=== PATIENT | female | born 1940 | race Caucasian/White ===

== ENCOUNTER 2024-12-07 11:37 | Inpatient (IN) ==
--- OUTSIDE RECORDS SUMMARY | 2024-12-07 11:44 | External Medical Summary | Summary of Care ---
Author Name Unknown Organization [facility] Address [address] [place] [address] Phone [phone] Care Team Providers Care Bus And Sys Integration Senior Manager Name Role Phone Melecio Nye MD Primary Care Provider [phone] Reason for Visit * Reason Onset Date Comments Referral 11/04/2024 Fax Home Health Referral to [facility] Encounter Details Date Type Department Care Team (Late st Contact Info) Description 11/04/2024 Telephone Care Coordination and Integration [address] [place] [address] Radha Boyce, RADHA [address] [place] [address] Referral (Fax Home Health Referral to [facility]... Allergies Active Allergy Reactions Criticality Noted Date Comments Nitrofurantoin 11/30/2015 Nausea and diarrhea, upset her stomach Morphine 05/12/2011 Severe headache Other reaction(s): severe headache documented as of this encounter (statuses as of 11/21/2024) Medications TIMOPTIC OCUDOSE 0.25 % OP SOLN Instill into eye 2 times a day. 0 0 02/02/2009 Active Cholecalciferol (VITAMIN D) 2000 units Tablet Take 2,000 Units by mouth daily. Active Dorzolamide HCl-Timolol Mal 2-0.5 % Ophthalmic Solution (Cosopt Ocumeter Plus) Instill 1 Drop into both eyes in the morning and 1 Drop before bedtime. 09/21/2023 Active Clopidogrel Bisulfate 75 MG Oral Tablet (pLAVix)Indicati ons:Cerebrovascu lar disease, arteriosclerotic , post-stroke TAKE 1 TABLET BY MOUTH EVERY MORNING 90 Tablet 1 08/08/2024 Active B-12 1000 MCG Oral TabletIndication s:Low vitamin B12 level One tab every M-W-F. 08/29/2024 Active Metoprolol Succinate ER 25 MG Oral Tablet Extended Release 24 Hour (toPROL XL)Indications:H [place], age 0-18 TAKE ONE TABLET BY MOUTH IN THE MORNING 90 Tablet 3 09/20/2024 Active Escitalopram Oxalate 10 MG Oral Tablet (Lexapro)Indicat ions:Current mild episode of major depressive disorder, unspecified whether recurrent (HCC) TAKE 1/2 TABLET BY MOUTH ONCE DAILY for 1 week then take 1 tablet once daily 90 Tablet 3 09/20/2024 Active Cefdinir 300 MG Oral Capsule (Omnicef) Take 1 Capsule by mouth in the morning and 1 Capsule before bedtime. 10/31/2024 Active Omeprazole 40 MG Oral Capsule Delayed Release (PriLOSEC)Indica tions:Gastroesop hageal reflux disease with esophagitis without hemorrhage Take 1 Capsule by mouth in the morning. 1 hour before the first meal of the day. 90 Capsule 3 11/03/2024 Active documented as of this encounter (statuses as of 11/21/2024) Active Problems Problem Noted Date Diagnosed Date Encephalomalacia with cerebral infarction 2024 Major depressive disorder, single episode, mild 04/20/2023 Dizziness 12/13/2022 Senile osteoporosis 12/13/2022 Dysphagia 12/13/2022 Tympanic membrane perforation, bilateral 019 Rectocele 12/20/2018 Prolapse of vaginal vault after hysterectomy 10/2018 Cystocele, lateral 12/20/2018 History of recurrent UTI (urinary tract infectio n) 05/18/2017 JD (stress urinary incontinence, female) 2016 Continuous leakage of urine 05/18/2017 Nocturnal enuresis 05/18/2017 Generalized osteoarthritis 08/22/2016 Dyslipidemia, goal LDL below 100 09/29/2013 Cerebrovascular disease, arteriosclerotic, post- stroke 07/08/2012 Cystocele, midline 01/03/2007 Migraine with aura 11/23/2003 documented as of this encounter (statuses as of 11/21/2024) Resolved Problems Problem Noted Date Diagnosed Date Resolved Date ADVANCE DIRECTIVE INFORMATION 12/26/2019 08/25/2024 Overview (12/05/2005): No advance directive- info given Urinary incontinence without sensory awareness 05/18/2017 02/25/2018 Urge incontinence of urine 05/18/2017 0 07/13/2021 Cough 12/10/2012 02/25/2018 Pneumonia due to organism 12/09/2012 Overview (07/25/2016): ICD-10 update of inactive term Cerebrovascular disease, art eriosclerotic, post-stroke 02/02/2009 07/08/2012 Overview (02/04/2009): Modified per CVA protocol #8 Urinary tract infection 01/28/200804/2018 Urinary frequency 01/28/2008 02/25/2018 Dysuria 01/28/2008 02/25/2018 Chronic pharyngitis 05/10/2007 02/26/20 18 Dyslipidemia, goal to be determined 01/22/2007 09/29/2013 CVA 11/10/2002 02/04/2009 Overview (02/04/2009): Modified per CVA protocol #8 documented as of this encounter (statuses as of 11/21/2024) Immunizations Name Administration Dates Next Due COVID-19 mRNA, LNP-s, No Pre serve, 2-Dose Series ([employer]) 11/03/2021,02/03/2021,01/13/2021 Pneumococcal Conjugate Vacci ne, 20-valent ([id number]) 10/26/2023 Pneumococcal Polysaccharide PPV23 (Pneumovax) 08/22/2007 Season Influenza, Quad, PF, Adjuvanted, 65+ Yrs, IM (FLUAD) 08/25/2020 Seasonal Influenza Vac., MDV , IM, 0.5 mL (Fluzone) 07/31/2014,07/30/2013,07/27/2012,10/0 02/2011,07/06/2010,07/15/2009,12/04/19 09(Deferred: Patient Refused) Seasonal Influenza, High Dos e, Trivalent, PF, IM (Fluzone HD) 08/25/2024 Seasonal Influenza, PF, 6 M & above, IM , (FluLaval or Fluzone) 08/22/2019,08/21/2018,08/20/2017 08/20/2018 Seasonal Influenza, Quadriva lent Hd (Fluzone Hd) 09/06/2023 Seasonal Influenza, Quadriva lent, No Preserve, IM 08/17/2016,08/05/2015 08/17/2017 Seasonal Influenza, Trivalen t, Adjuvanted, 65+ YRS, PF, (Fluad) 09/21/2022 TD, Preservative Free 12/21/2011 TDAP (age 10 and older)(Boostrix) 10/22/2017 Varicella Zoster Vaccine (Adult) 07/22/2013 documented as of this encounter Social History Tobacco Use Types Packs/Day Years Used Date Smoking Tobacco: Never Passive Smoke Exposure: Never Smokeless Tobacco: Never Alcohol Use Standard Drinks/Week Comments Not Currently 0 (1 standard drink = 0.6 oz pur e alcohol) PHQ-2 Answer Date Recorded PHQ Adult Total Score 0 11/04/2024 Hunger Vital Sign Answer Date Recorded Within the past 12 months, y ou worried that your food would run out before you got the money to buy more. Never true 11/04/19 25 Within the past 12 months, t he food you bought just didn't last and you didn't have money to get more. Never true 11/04/2024 Childcare Answer Date Recorded Do you feel overwhelmed with taking care of a child, family member or friend? No 11/04/2024 Does your family need help f inding childcare? (Household - for ages 0-17 years) Not on file 11/04/2024 Clothing Answer Date Recorded Have you been unable to get clothing when it was really needed? No 11/04/2024 Is your family able to get c lothes or diapers when needed? (Household - for ages 0-17 years) Not on file 11/04/2024 Personal Safety Answer Date Recorded Do you feel unsafe or have concerns for your saf ety? No 11/04/2024 Do you have concerns for you r family's safety? (Household - for ages 0-17 years) Not on file 11/04/2024 Utilities Answer Date Recorded Do you have trouble paying y our heating, water, or electric bill? No 11/04/2024 Is your family able to pay t he heat, water, or electric bill? (Household - for ages 0-17 years) Not on file 11/04/2024 Does your family have access to good internet? (Household - for ages 0-17 years) Not on file 11/04/2024 Employment Status Answer Date Recorded Are you unemployed or without regular income? No 11/04/2024 Does the household have a re lar source of income? (Household - for ages 0-17 years) Not on file 11/04/2024 Social Connections Answer Date Recorded How often do you feel lonely or isolated from th ose around you? Never 11/04/2024 Financial Resource Strain Answer Date R ecorded Do you have any trouble payi ng for your medications, or do you think you might in the future? No 11/04/2024 Does your family have troubl e paying for medicine? (Household - for ages 0-17 years) Not on file 11/04/2024 Transportation Needs Answer Date Record ed Do you have trouble getting a ride to medical visits or work? (Adult - for ages 18 years and over) Not on file 11/04/2024 Does your family have a hard time getting a ride to doctors visits? (Household - for ages 0-17 years) Not on file 11/04/2024 Has lack of transportation k ept you from medical appointments, meetings, work, or from getting things needed for daily living? Check all that apply. No 11/04/2024 Do you (or your family) have trouble finding or paying for a ride (transportation)? (Household - for ages 0-17 years) Not on file 11/04/2024 Housing Stability Answer Date Recorded Do you currently live in a s helter or have no steady place to sleep at night? No 11/04/2024 Do you think you are at risk of becoming homeless? (Adult - for ages 18 years and over) Not on file 11/04/2024 Does your family worry about paying for your home or becoming homeless? (Household - for ages 0-17 years) Not on file 0 11/04/2024 Are you homeless or worried that you might be in the future? No 11/04/2024 Are you (or your family) patricia eless or worried that you might be in the future? (Household - for ages 0-17 years) Not on file Food Insecurity Answer Date Recorded Do you need food for this week? No 11/04/2024 Are you able to get enough f ood for your family? (Household - for ages 0-17 years) Not on file 11/04/2024 Does your family need food t his week? (Household - for ages 0-17 years) Not on file 11/04/2024 Do you always have enough fo od for your family? 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 * Telephone Encounter - Radha Boyce RN - 11/20/2024 2:37 PM EST Upon speaking to patient's daughter Eleni today, she notes she has not yet been contacted by [facility]. A follow up call was made to [facility] and they never received the home health referral for patient. An alternate fax number for [facility] was provided (fax: [phone]). Front office staff, please fax patient's home health referral from 11/03/2024 to [phone]. Please also ensure Eleni's contact number is listed on the referral as she is the main point of contact for patient. Thanks, Radha Boyce RN, BSN Float Controls Operator [employer] [phone] * Telephone Encounter - Yasmine Denise OSA - 11/06/2024 4:25 PM EST This was taken care of by Torsten Velez today. 11/06/2024 * Telephone Encounter - Radha Boyce RN - 11/04/2024 2:38 PM EST A Home Health referral was placed during yesterday's clinic visit. Front office staff, please fax the home health referral to [facility]. Please also ensure patient's daughter's phone number is on the referral as she is the one who should be contacted to arrange home health visits. Thanks, Radha Boyce RN, BSN Float Controls Operator [employer]s [phone] documented in this encounter Plan of Treatment Upcoming Encounters Date Type Department Care Team (Late st Contact Info) Description 12/10/2024 11:30 AM EST Office Visit Otolaryngology [facility] [address] [address] Ilene Ruiz PA-C [address] [address] 12/16/2024 11:00 AM EST Imaging Radiology [facility] [address] [phone] 03/03/2025 1:00 PM EDT Office Visit [facility] Mary Rdz [address] [phone] Melecio Nye MD [address] [address] Scheduled Procedures Name Priority Associated Diagnoses Date/Ti me COLONOSCOPY FLEXIBLE PROXIMA L DIAGNOSTIC Recall History of colonic polyps Health Maintenance Due Date Last Done Comments Zoster Vaccines (2 of 3) 05/05/2014 03/10/2014, 10/2012 Adult Wellness Visit 06/21/2021 06/21/2020 COVID-19 Vaccine ( season) 2024 11/03/2021, 02/03/2021, 01/13/2021 Colonoscopy 07/01/2024 07/01/2019, 06/22, 07/01/2015, Additional history exists DXA Scan 11/22/2024 11/22/2022, 10/2022, 03/11/2015 Depression Monitoring 11/04/2025 11/04/2024, 024 DTap/Tdap Vaccines (2 - Td or Tdap) 10/22/2027 10/22/2017, 12/21/2011 RETIRED - COLONOSCOPY-EVERY 5 YRS AGES 18-100 Discontinued 07/01/2019, 07/01/2019, 07/01/2015, Additional history exists Pneumococcal Vaccine: 50+ Years Completed 10/26/2023, 08/22/2007 VITAMIN D LEVEL ONCE IN A LIFETIME-USE SMARTSET# [id number] Completed 12/13/2023, 12/13/2022, 08/27/2014, Additional history exists Influenza Vaccine (FLU shot) Completed 08/25/2024, 09/06/2023, 10/08/2022, Additional history exists HPV (Gardasil) Vaccine Aged Out No lo nger eligible based on patient's age to complete this topic Hepatitis B Vaccine Aged Out No longe r eligible based on patient's age to complete this topic MENINGOCOCCAL (MENACTRA/MENVEO) Aged Out No longer eligible based on patient's age to complete this topic documented as of this encounter Medical Devices Not on filedocumented as of this encounter Advance Directives Documents on File Type Date Recorded 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
--- OUTSIDE RECORDS SUMMARY | 2024-12-07 11:44 | External Medical Summary | Summary of Care ---
Author Name Unknown Organization [facility] Address [address] [place] [address] Phone [phone] Care Team Providers Care Shank Faker Name Role Phone Melecio Nye MD Primary Care Provider [phone] Reason for Visit * Reason Onset Date Comments Referral 11/04/2024 Fax Home Health Referral to [facility] Home Health Encounter Details Date Type Department Care Team (Late st Contact Info) Description 11/04/2024 Telephone Care Coordination and Integration [address] [place] [address] Radha Boyce, RADHA [address] [place] [address] Referral (Fax Home Health Referral to [facility]... Allergies Active Allergy Reactions Criticality Noted Date [...] mRNA, LNP-s, No Pre serve, 2-Dose Series ([employer]) 11/03/2021,02/03/2021,01/13/2021 Pneumococcal Conjugate Vacci ne, 20-valent ([id number]) 10/26/2023 Pneumococcal Polysaccharide PPV23 (Pneumovax) 08/22/2007 Season [...] she has not yet been contacted by [facility]. A follow up call was made to [facility] and they never received the home health referral for patient. An alternate fax number for [facility] was provided (fax: [phone]). Front office staff, please fax patient's home health referral from 11/03/2024 to [phone]. Please also ensure Eleni's contact number is listed on the referral as she is the main point of contact for patient. Thanks, Radha Boyce RN, BSN Float Showroom Consultant [phone] * Telephone Encounter - Yasmine Denise OSA - 11/06/2024 4:25 PM EST This was taken care of by Torsten Velez today. 11/06/2024 * Telephone Encounter - Radha Boyce RN - 11/04/2024 2:38 PM EST A Home Health referral was placed during yesterday's clinic visit. Front office staff, please fax the home health referral to [facility]. Please also ensure patient's daughter's phone number is on the referral as she is the one who should be contacted to arrange home health visits. Thanks, Radha Boyce RN, BSN Float Showroom Consultant [phone] documented in this encounter Plan of Treatment Upcoming Encounters Date Type Department Care Team (Late st Contact Info) Description 12/10/2024 11:30 AM EST Office Visit Otolaryngology [facility] [address] [address] Ilene Ruiz PA-C [address] [address] 12/16/2024 11:00 AM EST Imaging Radiology [facility] [address] [phone] 03/03/2025 1:00 PM EDT Office Visit [facility] Mary Rdz [address] [phone] Melecio Nye MD [address] [address] Scheduled Procedures Name Priority Associated Diagnoses Date/Ti [...] D LEVEL ONCE IN A LIFETIME-USE SMARTSET# [id number] Completed 12/13/2023, 12/13/2022, 08/27/2014, Additional history exists [...] Documents on File Type Date Recorded 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
--- OUTSIDE RECORDS SUMMARY | 2024-12-07 11:44 | External Medical Summary | Summary of Care ---
Author Name Unknown Organization [facility] Address [address] [place] [address] Phone [phone] Care Team Providers Care Technology And Engineering Teacher Name Role Phone eMlecio Nye MD Primary Care Provider [phone] Reason for Visit * Reason Onset Date Comments Referral 11/04/2024 Fax Home Health Referral to [facility] Encounter Details Date Type Department Care Team (Late st Contact Info) Description 11/04/2024 Telephone Care Coordination and Integration [address] [place] [address] Radha Boyce, RADHA [address] [place] [address] Referral (Fax Home Health Referral to [facility]... Allergies Active Allergy Reactions Criticality Noted Date Comments Nitrofurantoin 11/30/2015 Nausea and diarrhea, upset her stomach Morphine 05/12/2011 Severe headache Other reaction(s): severe headache documented as of this encounter (statuses as of 11/20/2024) Medications TIMOPTIC OCUDOSE 0.25 % OP SOLN [...] as of this encounter (statuses as of 11/20/2024) Active Problems Problem Noted Date Diagnosed Date [...] as of this encounter (statuses as of 11/20/2024) Resolved Problems Problem Noted Date Diagnosed Date [...] as of this encounter (statuses as of 11/20/2024) Immunizations Name Administration Dates Next Due COVID-19 mRNA, LNP-s, No Pre serve, 2-Dose Series ([employer] 11/03/2021,02/03/2021,01/13/2021 Pneumococcal Conjugate Vacci ne, 20-valent ([id number]) 10/26/2023 Pneumococcal Polysaccharide PPV23 (Pneumovax) 08/22/2007 Season [...] encounter Miscellaneous Notes * Telephone Encounter - Radha Boyce RN - 11/20/2024 2:37 PM EST Upon speaking to patient's daughter Eleni today, she notes she has not yet been contacted by [facility]. A follow up call was made to [facility] and they never received the home health referral for patient. An alternate fax number for [facility] was provided (fax: [phone]). Front office staff, please fax patient's home health referral from 11/03/2024 to [phone]. Please also ensure Eleni's contact number is listed on the referral as she is the main point of contact for patient. Thanks, Radha Boyce RN, BSN Float Pigment Pusher [phone] * Telephone Encounter - Yasmine Denise OSA - 11/06/2024 4:25 PM EST This was taken care of by Torsten Velez today. 11/06/2024 * Telephone Encounter - Radha Boyce RN - 11/04/2024 2:38 PM EST A Home Health referral was placed during yesterday's clinic visit. Front office staff, please fax the home health referral to [facility]. Please also ensure patient's daughter's phone number is on the referral as she is the one who should be contacted to arrange home health visits. Thanks, Radha Boyce RN, BSN Float Pigment Pusher [phone] documented in this encounter Plan of Treatment Upcoming Encounters Date Type Department Care Team (Late st Contact Info) Description 12/10/2024 11:30 AM EST Office Visit Otolaryngology [facility] [address] [address] Ilene Ruiz PA-C [address] [address] 12/16/2024 11:00 AM EST Imaging Radiology [facility] [address] [phone] 03/03/2025 1:00 PM EDT [facility] [address] [phone] Melecio Nye MD [address] [address] Scheduled Procedures Name Priority Associated Diagnoses Date/Ti me COLONOSCOPY FLEXIBLE PROXIMA L DIAGNOSTIC Recall History of colonic polyps Health Maintenance Due Date Last Done Comments Zoster Vaccines (2 of 3) 05/05/2014 03/10/2014, 1010/2012 Adult Wellness Visit 06/21/2021 06/21/2020 COVID-19 Vaccine [...] D LEVEL ONCE IN A LIFETIME-USE SMARTSET# [id number] Completed 12/13/2023, 12/13/2022, 08/27/2014, Additional history exists [...] Documents on File Type Date Recorded 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
--- OUTSIDE RECORDS SUMMARY | 2024-12-07 11:44 | External Medical Summary | Summary of Care ---
Author Name Unknown Organization [facility] Address [address] [place] [address] Phone [phone] Care Team Providers Care Bench Hand Machine Name Role Phone Melecio Nye MD Primary Care Provider [phone] Encounter Details Date Type Department Care Team (Late st Contact Info) Description 11/20/2024 Telephone [facility] [address] [place] [phone] Deepti Garcia MD [address] [facility] [address] [place] [phone] Allergies Active Allergy Reactions Criticality Noted Date Comments Nitrofurantoin 11/30/2015 Nausea and diarrhea, upset her stomach Morphine 05/12/2011 Severe headache Other reaction(s): severe headache documented as of this encounter (statuses as of 11/27/2024) Medications TIMOPTIC OCUDOSE 0.25 % OP SOLN [...] as of this encounter (statuses as of 11/27/2024) Active Problems Problem Noted Date Diagnosed Date [...] as of this encounter (statuses as of 11/27/2024) Resolved Problems Problem Noted Date Diagnosed Date [...] as of this encounter (statuses as of 11/27/2024) Immunizations Name Administration Dates Next Due COVID-19 mRNA, LNP-s, No Pre serve, 2-Dose Series ([employer]) 11/03/2021,02/03/2021,01/13/2021 Pneumococcal Conjugate Vacci ne, 20-valent ([id number]) 10/26/2023 Pneumococcal Polysaccharide PPV23 (Pneumovax) 08/22/2007 Season Influenza, Quad, PF, Adjuvanted, 65+ Yrs, IM (FLUAD) 08/25/2020 Seasonal Influenza Vac., MDV , IM, 0.5 mL (Fluzone) 07/31/2014,07/30/2013,07/27/2012,02/2011,07/06/2010,07/15/2009,12/04/19 09(Deferred: Patient Refused) Seasonal Influenza, High Dos [...] 11/04/2024 Does the household have a re gular source of income? (Household - for ages [...] ages 0-17 years) Not on file 11/04/2024 Food Insecurity Answer Date Recorded Within the past 12 months, y ou worried that your food would run out before you got the money to buy more. Never true 11/04/19 25 Within the past 12 months, t he food you bought just didn't last and you didn't have money to get more. Never true 11/04/2024 Do you need food for this week? No 11/04/2024 Comments No Sex and Gender Information [...] encounter Miscellaneous Notes * Telephone Encounter - Yin Alvares LPN - 11/20/2024 2:36 PM EST Left message on machine to return call. Please see message below. * Telephone Encounter - Deepti Garcia MD - 11/20/2024 9:05 AM EST Repeated urine test was negative for infection documented in this encounter Plan of Treatment Upcoming Encounters Date Type Department Care Team (Late st Contact Info) Description 12/10/2024 11:30 AM EST Office Visit Otolaryngology [facility] [address] [facility] [address] [address] Ilene Ruiz PA-C [address] [place] [address] 12/16/2024 11:00 AM EST Imaging Radiology [facility] [address] [place] [phone] 03/03/2025 1:00 PM EDT Office Visit [facility] [address] [facility] [phone] Melecio Nye MD [address] [facility] [place] [address] Scheduled Procedures Name Priority Associated Diagnoses Date/Ti [...] D LEVEL ONCE IN A LIFETIME-USE SMARTSET# [id number] Completed 12/13/2023, 12/13/2022, 08/27/2014, Additional history exists [...] Documents on File Type Date Recorded 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
--- OUTSIDE RECORDS SUMMARY | 2024-12-07 11:44 | External Medical Summary | Summary of Care ---
Author Name Unknown Organization [facility] Address [address] [place] [address] Phone [phone] Care Team Providers Care Infectious Disease Technician Name Role Phone Melecio Nye MD Primary Care Provider [phone] Encounter Details Date Type Department Care Team (Late st Contact Info) Description 11/20/2024 Telephone [facility] [address] [place] [address] Deepti Garcia MD [address] [facility] [place] [id number] Allergies Active Allergy Reactions Criticality Noted Date [...] mRNA, LNP-s, No Pre serve, 2-Dose Series ([employer]) 11/03/2021,02/03/2021,01/13/2021 Pneumococcal Conjugate Vacci ne, 20-valent ([id number]) 10/26/2023 Pneumococcal Polysaccharide PPV23 (Pneumovax) 08/22/2007 Season [...] 12/10/2024 11:30 AM EST Office Visit Otolaryngology [facility] [address] [address] Ilene Ruiz PA-C [address] [address] 12/16/2024 11:00 AM EST Imaging Radiology [facility] [address] [phone] 03/03/2025 1:00 PM EDT Office Visit [facility], [place] [address] [phone] Melecio Nye MD [address] [address] Scheduled Procedures Name Priority Associated Diagnoses Date/Ti [...] D LEVEL ONCE IN A LIFETIME-USE SMARTSET# [id number] Completed 12/13/2023, 12/13/2022, 08/27/2014, Additional history exists [...] Documents on File Type Date Recorded Patient Prosthetics Technician Expl anation Advance Directives and Living Will 04/16/2017 LIVING WILL Care Teams Infectious Disease Technician Relationship Specialty Start Date End Date Melecio Nye MD PCP - General Family Medicine 12/11/22 documented as of this encounter
--- OUTSIDE RECORDS SUMMARY | 2024-12-07 11:44 | External Medical Summary ---
Author Name UNSPECIFIED Address Unknown Organization [facility] History of Encounters Reason for Assessment: Start of care - f urther visits planned Inpatient discharge facility: Past 14 Da ys: Not Discharged from Inpatient Facility Functional Assessment Patient Living Situation: Patient Lives Alone: Around the clock When Dyspneic: With moderate exerti on (e.g., while dressing, using commode or bedpan, walking distances less than 20 feet) Urinary Incontinence or Urin genia Catheter Present: Patient is incontinent Bowel Incontinence Frequency: One to thr ee times weekly Cognitive Functioning: Requires promptin g (cueing, repetition, reminders) only under stressful or unfamiliar conditions. When Confused (Reported or Observed): In new or complex situations only When Anxious (Reported or Observed): Les s often than daily Cognitive and Behavioral and Psychiatric Symptoms: Memory deficit: failure to recognize familiar persons/places, inability to recall events of past 24 hours, significant memory loss so that supervision is required Frequency of Behavior Problems: Several times a week Current Ability: Bathing: able to partic ipate in bathing self in shower or tub, but requires presence of another person throughout the bath for assistance or supervision. Current Ability: Ambulation: Able to wal k only with the supervision or assistance of another person at all times. 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
--- OUTSIDE RECORDS SUMMARY | 2024-12-07 11:44 | External Medical Summary | Summary of Care ---
Author Name Unknown Organization [facility] Address [address] [place] [address] Phone [phone] Care Team Providers Care Security Systems Technician Name Role Phone Melecio Nye MD Primary Care Provider [phone] Reason for Visit * Reason Onset Date Comments Referral 11/04/2024 Fax Home Health Referral to [facility] Encounter Details Date Type Department Care Team (Late st Contact Info) Description 11/04/2024 Telephone Care Coordination and Integration [address] [place] [address] Radha Boyce, RADHA [address] [place] [address] Referral (Fax Home Health Referral to [facility]... Allergies Active Allergy Reactions Criticality Noted Date [...] mRNA, LNP-s, No Pre serve, 2-Dose Series ([employer] 11/03/2021,02/03/2021,01/13/2021 Pneumococcal Conjugate Vacci ne, 20-valent ([id number]) 10/26/2023 Pneumococcal Polysaccharide PPV23 (Pneumovax) 08/22/2007 Season [...] she has not yet been contacted by [facility]. A follow up call was made to [facility] and they never received the home health referral for patient. An alternate fax number for [facility] was provided (fax: [phone]). Front office staff, please fax patient's home health referral from 11/03/2024 to [phone]. Please also ensure Eleni's contact number is listed on the referral as she is the main point of contact for patient. Thanks, Radha Boyce RN, BSN [employer] Operations Specialist [phone] * Telephone Encounter - Yasmine Denise OSA - 11/06/2024 4:25 PM EST This was taken care of by Torsten Velez today. 11/06/2024 * Telephone Encounter - Radha Boyce RN - 11/04/2024 2:38 PM EST A Home Health referral was placed during yesterday's clinic visit. Front office staff, please fax the home health referral to [facility]. Please also ensure patient's daughter's phone number is on the referral as she is the one who should be contacted to arrange home health visits. Thanks, Radha Boyce RN, BSN [employer] Operations Specialist [phone] documented in this encounter Plan of Treatment Upcoming Encounters Date Type Department Care Team (Late st Contact Info) Description 12/10/2024 11:30 AM EST Office Visit Otolaryngology [facility] [address] [address] Ilene Ruiz PA-C [address] [address] 12/16/2024 11:00 AM EST Imaging Radiology [facility] [address] [phone] 03/03/2025 1:00 PM EDT [facility] [address] [phone] Melecio Nye MD [address] [address] Scheduled Procedures Name Priority Associated Diagnoses Date/Ti [...] D LEVEL ONCE IN A LIFETIME-USE SMARTSET# [id number] Completed 12/13/2023, 12/13/2022, 08/27/2014, Additional history exists [...] Documents on File Type Date Recorded Patient Axminster Weaver Expl anation Advance Directives and Living Will 04/16/2017 LIVING WILL Care Teams Security Systems Technician Relationship Specialty Start Date End Date Melecio Nye MD PCP - General Family Medicine 12/11/22 documented as of this encounter
--- OUTSIDE RECORDS SUMMARY | 2024-12-07 11:45 | External Medical Summary | Summary of Care ---
Author Name Unknown Organization [facility] Address [address] [facility] [address] Phone [phone] Care Team Providers Care Application Integration Engineer Name Role Phone Melecio Nye MD Primary Care Provider [phone] Encounter Details Date Type Department Care Team (Late st Contact Info) Description 11/06/2024 Orders Only PATIENT PORTAL DO NOT DELETE THIS DEPT USED BY GEENA SELF [id number] Allergies Active Allergy Reactions Criticality Noted Date Comments Nitrofurantoin 11/30/2015 Nausea and diarrhea, upset her stomach Morphine 05/12/2011 Severe headache Other reaction(s): severe headache documented as of this encounter (statuses as of 11/06/2024) Medications TIMOPTIC OCUDOSE 0.25 % OP SOLN [...] s:Low vitamin B12 level One tab every -W-. 08/29/2024 Active Metoprolol Succinate ER 25 MG [...] as of this encounter (statuses as of 11/06/2024) Active Problems Problem Noted Date Diagnosed Date [...] as of this encounter (statuses as of 11/06/2024) Resolved Problems Problem Noted Date Diagnosed Date [...] as of this encounter (statuses as of 11/06/2024) Immunizations Name Administration Dates Next Due COVID-19 mRNA, LNP-s, No Pre serve, 2-Dose Series ([employer]) 11/03/2021,02/03/2021,01/13/2021 Pneumococcal Conjugate Vacci ne, 20-valent ([id number]) 10/26/2023 Pneumococcal Polysaccharide PPV23 (Pneumovax) 08/22/2007 Season [...] on file documented as of this encounter Plan of Treatment Upcoming Encounters Date Type Department Care Team (Late st Contact Info) Description 12/10/2024 11:30 AM EST Office Visit Otolaryngology [facility] [address] [address] Ilene Ruiz PA-C [address] [address] 12/16/2024 11:00 AM EST Imaging Radiology [facility] [address] [phone] 03/03/2025 1:00 PM EDT Office Visit [facility] Karen Robreto [address] [phone] Melecio Nye MD [address] [address] Scheduled Procedures Name Priority Associated Diagnoses Date/Ti [...] D LEVEL ONCE IN A LIFETIME-USE SMARTSET# [id number] Completed 12/13/2023, 12/13/2022, 08/27/2014, Additional history exists [...] Documents on File Type Date Recorded Patient Felt Tipping Machine Tender Expl anation Advance Directives and Living Will 04/16/2017 LIVING WILL Care Teams Application Integration Engineer Relationship Specialty Start Date End Date Melecio Nye MD PCP - General Family Medicine 12/11/22 documented as of this encounter
--- OUTSIDE RECORDS SUMMARY | 2024-12-07 11:45 | External Medical Summary | Summary of Care ---
Author Name Unknown Organization [facility] Address [address] [place] [address] Phone [phone] Care Team Providers Care Welt Beater Name Role Phone Melecio Nye MD Primary Care Provider [phone] Encounter Details Date Type Department Care Team (Late st Contact Info) Description 11/20/[address] [facility] [address] [place] [address] Deepti Garcia MD [address] [facility] [address] [place] [phone] Allergies Active Allergy Reactions Criticality Noted Date [...] mRNA, LNP-s, No Pre serve, 2-Dose Series ([employer]) 11/03/2021,02/03/2021,01/13/2021 Pneumococcal Conjugate Vacci ne, 20-valent ([id number]) 10/26/2023 Pneumococcal Polysaccharide PPV23 (Pneumovax) 08/22/2007 Season [...] encounter Miscellaneous Notes * Telephone Encounter - Deepti Garcia MD - 11/20/2024 9:05 AM EST Repeated urine test was negative for infection documented in this encounter Plan of Treatment Upcoming Encounters Date Type Department Care Team (Late st Contact Info) Description 12/10/2024 11:30 AM EST Office Visit Otolaryngology [facility] [address] [address] Ilene Ruiz PA-C [address] [address] 12/16/2024 11:00 AM EST Imaging Radiology [facility] [address] [phone] 03/03/2025 1:00 PM EDT Office Visit [facility] [place] [address] [phone] Melecio Nye MD [address] [address] Scheduled Procedures Name Priority Associated Diagnoses Date/Ti [...] D LEVEL ONCE IN A LIFETIME-USE SMARTSET# [id number] Completed 12/13/2023, 12/13/2022, 08/27/2014, Additional history exists [...] Documents on File Type Date Recorded Patient Foot Gatherer Expl anation Advance Directives and Living Will 04/16/2017 LIVING WILL Care Teams Welt Beater Relationship Specialty Start Date End Date Melecio Nye MD PCP - General Family Medicine 12/11/22 documented as of this encounter
--- OUTSIDE RECORDS SUMMARY | 2024-12-07 11:45 | External Medical Summary | Summary of Care ---
Author Name Unknown Organization [facility] Address [address] [place] [address] Phone [phone] Care Team Providers Care [employer] Name Role Phone Melecio Nye MD Primary Care Provider [phone] Reason for Referral * Evaluate & Treat - Unlimited Visits (Within 10 days (routine)) - Authorized Specialty Diagnoses / Procedures Referred By Contac t Referred To Contact HOME CARE / Home Care Diagnoses Confusion Cerebrovascular disease, arteriosclerotic, post-stroke Encephalomalacia with cerebral infarction (HCC) Balance disorder 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 At high risk for falls Deepti Garcia MD [address] [facility] [address] [place] [place] [address] Phone: tel: fax: Referral ID Status Reason Start Date Expiration Date Visits Requested Visits Authorized [id number] Authorized Specialty Services Required 11/03/2024 999 [id number] Question Answer Referral Priority Within 10 days (routine) Where should this appointment be scheduled? Bo Comments Documentation of [id number] Encounter Addendum Patient Name: Marguerite Euceda I certify that this patient is under my care and that I, or a nurse practitioner or physician's assistant unit forester working with me, had a [id number] encounter that meets the physician [id number] encounter requirements with this patient on: Nov 03 2024 The encounter with the patient was in whole, or in part, for the following medical condition, which is the primary reason for home health care (List medical condition): Gait dysfunction, ADL dysfunction I certify that, based on my findings, the following services are medically necessary home health services: Physical Therapy, occupation therapy , and nursing To provide the following care/treatments: (All hospitalists not following the patient after discharge should complete this section): PT/OT, nursing Primary Care Physician to follow home care plan of care after discharge: Dr Nye My clinical findings support the need for the above services because: generalized weakness, OA , gait problem, falls Further, I certify that my clinical findings support that this patient is homebound (i.e. Absences from home require considerable and taxing effort and are for medical reasons or religion services or infrequently or of short duration when for other reason) because: Stroke, weakness, speech issue , falls Physician Signature: Date of Signature: Physician Printed Name: Deepti Garcia MD * Social Care (Within 10 days (routine)) - Authorized Specialty Diagnoses / Procedures Referred By Hilda nunez Referred To Contact Brick Grader Diagnoses Confusion Cerebrovascular disease, arteriosclerotic, post-stroke Encephalomalacia with cerebral infarction (HCC) Balance disorder 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 At high risk for falls Deepti Garcia MD [address] [place] [id number] Phone: tel: fax: Referral ID Status Reason Start Date Expiration Date Visits Requested Visits Authorized [id number] Authorized Specialty Services Required 11/03/2024 999 [id number] Question Answer Role Bottom Loader Bottom Loader Referral Reason Frail Elderly Referral Priority Within 10 days (routine) Where should this appointment be scheduled? External Reason for Visit * Reason Comments Physical-Exam Pt here today for a complete physical and her 6 month return visit Encounter Details Date Type Department Care Team (Late st Contact Info) Description 11/03/2024 11:40 AM EST Office Visit [facility] [place] Karen Roberto [address] [id number] Deepti Garcia MD [address] [id number] Cerebrovascular disease, arteriosclerotic, post-stroke*; Risk and functional assessment; JD (stress urinary incontinence, female); Recurrent UTI; Confusion; Encephalomalacia with cerebral infarction (HCC); Balance disorder; Generalized osteoarthritis; Failure to thrive in adult; At high risk for falls; Dyslipidemia, goal LDL below 100; Gastroesophageal reflux disease with esophagitis without hemorrhage Allergies Active Allergy Reactions Criticality Noted Date Comments Nitrofurantoin 11/30/2015 Nausea and diarrhea, upset her stomach Morphine 05/12/2011 Severe headache Other reaction(s): severe headache documented as of this encounter (statuses as of 11/03/2024) Medications TIMOPTIC OCUDOSE 0.25 % OP SOLN Instill into eye 2 times a day. 0 0 02/03/20 09 Active Cholecalciferol (VITAMIN D) 2000 units Tablet Take 2,000 Units by mouth daily. Active B Complex-C CAPS Take by mouth daily. Active Triamcinolone Acetonide 0.1 % External Cream (Aristocort)Ind ications:Dermat itis Apply topically to affected area 2 times a day. To lower legs 80 g 5 04/20/20 23 Active Dorzolamide HCl-Timolol Mal 2-0.5 % Ophthalmic Solution (Cosopt Ocumeter Plus) Instill 1 Drop into both eyes in the morning and 1 Drop before bedtime. 09/21/20 23 Active Clopidogrel Bisulfate 75 MG Oral Tablet (pLAVix)Indicat ions:Cerebrovas cular disease, arterioscleroti c, post-stroke TAKE 1 TABLET BY MOUTH EVERY MORNING 90 Tablet 1 08/08/20 24 Active B-12 1000 MCG Oral TabletIndicatio ns:Low vitamin B12 level One tab every -W-. 08/29/20 24 Active Metoprolol Succinate ER 25 MG Oral Tablet Extended Release 24 Hour (toPROL XL)Indications: HTN, age 0-18 TAKE ONE TABLET BY MOUTH IN THE MORNING 90 Tablet 3 09/20/20 24 Active Escitalopram Oxalate 10 MG Oral Tablet (Lexapro)Indica tions:Current mild episode of major depressive disorder, unspecified whether recurrent (HCC) TAKE 1/2 TABLET BY MOUTH ONCE DAILY for 1 week then take 1 tablet once daily 90 Tablet 3 09/20/20 24 Active Cefdinir 300 MG Oral Capsule (Omnicef) Take 1 Capsule by mouth in the morning and 1 Capsule before bedtime. 10/31/19 25 Active Omeprazole 40 MG Oral Capsule Delayed Release (PriLOSEC)Indic ations:Gastroes ophageal reflux disease with esophagitis without hemorrhage Take 1 Capsule by mouth in the morning. 1 hour before the first meal of the day. 90 Capsule 3 11/03/19 25 Active Neomycin-Polymy melissa-Dexameth [id number] Ophthalmic Suspension (Maxitrol) 03/25/20 21 025 Discontinued LORazepam 0.5 MG Oral Tablet (Ativan)Indicat ions:HECTOR (generalized anxiety disorder) Take 1 Tab by mouth every 6 hours as needed for Anxiety. 20 Tab 05/24/20 21 025 Discontinued(Dimas rock preference/disc ontinuation) Omeprazole 40 MG Oral Capsule Delayed Release (PriLOSEC)Indic ations:Gastroes ophageal reflux disease with esophagitis without hemorrhage Take 1 Capsule (40 mg) by mouth in the morning. 1 hour before the first meal of the day. 90 Capsule 3 09/20/20 22 025 Discontinued(Re fill) documented as of this encounter (statuses as of 11/03/2024) Active Problems Problem Noted Date Diagnosed Date [...] as of this encounter (statuses as of 11/03/2024) Resolved Problems Problem Noted Date Diagnosed Date [...] as of this encounter (statuses as of 11/03/2024) Immunizations Name Administration Dates Next Due COVID-19 mRNA, LNP-s, No Pre serve, 2-Dose Series (Instaradio) 11/03/2021,02/03/2021,01/13/2021 Pneumococcal Conjugate Vacci ne, 20-valent ([id number]) 10/26/2023 Pneumococcal Polysaccharide PPV23 (Pneumovax) 08/22/2007 Season [...] Passive Smoke Exposure: Never Smokeless Tobacco: Never Tobacco Cessation:Counseling Given: Not Answered Alcohol Use Standard Drinks/Week Comments Not Currently 0 (1 standard drink = 0.6 oz pur e alcohol) PHQ-2 Answer Date Recorded PHQ Adult Total Score 6 04/25/2024 Hunger Vital Sign Answer Date Recorded Within the past 12 months, y ou worried that your food would run out before you got the money to buy more. Never true 11/03/19 25 Within the past 12 months, t he food you bought just didn't last and you didn't have money to get more. Never true 11/03/2024 Childcare Answer Date Recorded Do you feel overwhelmed with taking care of a child, family member or friend? No 11/03/2024 Does your family need help f inding childcare? (Household - for ages 0-17 years) Not on file 11/03/2024 Clothing Answer Date Recorded Have you been unable to get clothing when it was really needed? No 11/03/2024 Is your family able to get c lothes or diapers when needed? (Household - for ages 0-17 years) Not on file 11/03/2024 Personal Safety Answer Date Recorded Do you feel unsafe or have concerns for your saf ety? No 11/03/2024 Do you have concerns for you r family's safety? (Household - for ages 0-17 years) Not on file 11/03/2024 Utilities Answer Date Recorded Do you have trouble paying y our heating, water, or electric bill? No 11/03/2024 Is your family able to pay t he heat, water, or electric bill? (Household - for ages 0-17 years) Not on file 11/03/2024 Does your family have access to good internet? (Household - for ages 0-17 years) Not on file 11/03/2024 Employment Status Answer Date Recorded Are you unemployed or without regular income? No 11/03/2024 Does the household have a re lar source of income? (Household - for ages 0-17 years) Not on file 11/03/2024 Social Connections Answer Date Recorded How often do you feel lonely or isolated from th ose around you? Never 11/03/2024 Financial Resource Strain Answer Date R ecorded Do you have any trouble payi ng for your medications, or do you think you might in the future? No 11/03/2024 Does your family have troubl e paying for medicine? (Household - for ages 0-17 years) Not on file 11/03/2024 Transportation Needs Answer Date Record ed Do you have trouble getting a ride to medical visits or work? (Adult - for ages 18 years and over) Not on file 11/03/2024 Does your family have a hard time getting a ride to doctors visits? (Household - for ages 0-17 years) Not on file 11/03/2024 Has lack of transportation k ept you from medical appointments, meetings, work, or from getting things needed for daily living? Check all that apply. No 11/03/2024 Do you (or your family) have trouble finding or paying for a ride (transportation)? (Household - for ages 0-17 years) Not on file 11/03/2024 Housing Stability Answer Date Recorded Do you currently live in a s helter or have no steady place to sleep at night? No 11/03/2024 Do you think you are at risk of becoming homeless? (Adult - for ages 18 years and over) Not on file 11/03/2024 Does your family worry about paying for your home or becoming homeless? (Household - for ages 0-17 years) Not on file 0 11/03/2024 Are you homeless or worried that you might be in the future? No 11/03/2024 Are you (or your family) patricia eless or worried that you might be in the future? (Household - for ages 0-17 years) Not on file Food Insecurity Answer Date Recorded Do you need food for this week? No 11/03/2024 Are you able to get enough f ood for your family? (Household - for ages 0-17 years) Not on file 11/03/2024 Does your family need food t his week? (Household - for ages 0-17 years) Not on file 11/03/2024 Do you always have enough fo od for your family? 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 on file Not on file Not on file documented as of this encounter Last Filed Vital Signs Vital Sign Reading Time Taken Comments Blood Pressure 109/75 11/03/2024 11:48 AM EST Pulse 90 11/03/2024 11:48 AM EST Temperature 36.4 C (97.6 F) 11/03/2024 11:[address] Respiratory Rate 16 11/03/2024 11:48 AM EST Oxygen Saturation 98% 11/03/2024 11:48 AM EST Inhaled Oxygen Concentration - - Weight 49.4 kg (109 lb) 11/03/2024 11:48 AM EST Height 160.7 cm (5' 3.25") 11/03/2024 11:[address] Body Mass Index 19.16 11/03/2024 11:48 AM EST documented in this encounter Patient Instructions * Patient Instructions* Kika Hull, LURER - 11/03/2024 11:52 AM EST Patient Instructions - Fall Prevention (This education is for all patients over 65 regardless of symptoms) Remember to take your current medications as prescribed. In order to prevent falls, you are encouraged to: Exercise Utilize assistive/adaptive devices Avoid multifocal lenses when walking Avoid hazards in home Maintain a regular toileting schedule Any questions please contact our office. Preventing Falls in the Home (This education is for all patients over 65 regardless of symptoms) As you get older, falls are more likely. Thats because your reaction time slows. Your muscles and joints may also get stiffer, making them less flexible. Illness, medications, and vision changes can also affect your balance. A fall could leave you unable to live on your own. To make your home safer, follow these tips: Floors Put nonskid pads under area rugs Remove throw rugs Replace worn floor coverings Tack carpets firmly to each step on carpeted stairs. Put nonskid strips on the edges of uncarpeted stairs Keep floors and stairs free of clutter and cords Arrange furniture so there are clear pathways Clean up any spills right away Bathrooms Install grab bars in the tub or shower Apply nonskid strips or put a nonskid rubber mat in the tub or shower Sit on a bath chair to bathe Use bathmats with nonskid backing Lighting Keep a flashlight in each room Put a nightlight along the pathway between the bedroom and the bathroom [employer] Patient Education Copyright 2008 - 2010 [employer] except where otherwise noted Preventing Falls: Exercises to Improve Balance, Flexibility, Strength, and Staying Power (This education is for all patients over 65 regardless of symptoms) Certain types of exercises may help make you less likely to fall. Try the ones below. Or do other exercises that your healthcare provider suggests. Depending on your health, you may need to start slowly. Dont let that stop you. Even small amounts of exercise can help you. Be sure to talk to yourhealthcare provider before starting any exercise program. Improve Balance Many types of exercise can help improve balance. Bubba chi and yoga are good examples. Heres another one to try. You can do it anytime and almost anywhere. Stand next to a counter or solid support. Push yourself up onto your tiptoes. Hold for 5 seconds. If you start to lose your balance, hold on to the counter. Rest and repeat 5 times. Work up to holding for 20 to 30 seconds, if you can. Increase Flexibility Being more flexible makes it easier for you to move around safely. Try exercises like the seated hamstring stretch. Sit in a chair and put one foot on a stool. Straighten your leg and reach with both hands down either side of your leg. Reach as far down your leg as you can. Hold for about 20 seconds. Go back to the starting position. Then repeat 5 times. Switch legs. Build Strength Resistance exercises help build strength. You can do them without equipment. Or you can use weights, elastic bands, or special machines. One such exercise is called the biceps curl. You can hold a 1 pound weight or even a can of soup. Do this exercise at least 3 times a week. Strive for everyday. Sit up straight in a chair. Keep your elbow close to your body and your wrist straight. Bend your arm, moving your hand up to your shoulder. Then slowly lower your arm. Repeat 5 times. Switch to the other arm. Build Your Staying Power Aerobic exercises make your heart and lungs stronger so you can keep moving longer. Walking and swimming are two of the best types of exercises you can do. Using a stationary bike is great, too. Find an aerobic exercise that you enjoy. Start slowly and build up. Even 5 minutes is helpful. Aimfor a goal of 30 minutes, at least 3 times a week. You dont have to do 30 minutes in one session. Break it up and walk a little throughout the day. More Helpful Tips Start easy. Slowly work up to doing more. Talk with your healthcare provider about the best exercises for you. Call senior centers or health clubs about exercise programs. If needed, have a family member watch you walk every so often to check your stability. Exercise with a friend. Choose an activity you both enjoy. Try exercises that you can do anytime, anywhere. Here are two examples. Have someone with you when you first try these: Practice walking by placing one foot right in front of the other. Stand up and sit down 10 times. Repeat this throughout the day. [employer] Patient Education Copyright 2009 - 2010 [employer] except where otherwise noted. Preventing Falls: Moving Safely Using a Cane or Walker (This education is for all patients over 65 regardless of symptoms) Keep the cane away from your feet so you dont trip. A walking aid, such as a cane or walker, can help you stay more independent and avoid falls. Remember to keep your walking aid within easy reach when youre in a chair or in bed. And learn how to use it safely so you dont injure yourself. Using a Cane If you have a stronger side, hold the cane on that side. Get your balance. Move the cane and your weaker leg forward. Support your weight on both the cane and your weaker side. Step with your stronger leg. Start again from step 1. If youre using a folding walker, be sure you know how to lock it open. Check that its locked open before each use. Using a Walker Roll the walker (or lift it, if youre using one without wheels) forward about 12 inches. Step forward with your weaker leg first. Use the walker to help keep your balance. Bring your other foot forward to the center of the walker. Start again from step 1. Helpful Tips Check with your healthcare provider about the right walking aid to use. Ask about a walker with a seat attached. Check the tips of your cane or walker to make sure they have nonskid covers. Move slowly from room to room. Dont torres. Sit down to get dressed. Use a cheri pack or backpack to keep your hands free. Get help for jobs that mean climbing, even on a stepstool. [employer] Patient Education Copyright 2008 - 2010 [employer] except where otherwise noted. Urinary Incontinence Plan of Care Documentation: (This education is for all patients over 65 regardless of symptoms) Current medications reconciled. Patient encouraged to: Practice kegal exercises Provide education materials Use the restroom every 2 hours throughout the day Limit caffeine, alcohol, spicy foods and acidic foods Keep a bladder diary Limit fluid intake 3-4 hours before bed Lose weight Prevent constipation Take fluid pills at a time when you can get to the bathroom quickly Control sugar better if diabetic Limit fluid intake to 60 oz. per day Wear support stockings (TEDs)if you have edema Kika Hull LPN 11/03/2024 Kegel Exercises Kegel exercises dont require special clothing or equipment. Theyre easy to learn and simple to do. And if you do them right, no one can tell youre doing them, so they can be done almost anywhere. Your doctor, nurse, or physical therapist can answer any questions you have and help you get started. A Weak Pelvic Floor The pelvic floor muscles may weaken due to aging, and vaginal childbirth, injury, surgery, chronic cough, or lack of exercise. If the pelvic floor is weak, your bladder and other pelvic organs may sag out of place. The urethra may also open too easily and allow urine to leak out. Kegel exercises can help you strengthen your pelvic floor muscles so they can better support the pelvic organs and control urine flow. How Kegel Exercises Are Done Try each of the Kegel exercises described below. When youre doing them, try not to move your leg, buttock, or stomach muscles. While youre urinating, try to stop the flow of urine. Start and stop it as often as you can. Contract as if you were stopping your urine stream, but do it when youre not urinating. Tighten your rectum as if trying not to pass gas. Contract your anus, but dont move your buttocks. Helpful Hints Do your Kegels as often as you can. The more you do them, the faster youll feel the results. Pick an activity you do often as a reminder. For instance, do your Kegels every time you sit down. Tighten your pelvic floor before you sneeze, get up from a chair, cough, laugh, or lift. This protects your pelvic floor from injury and can help prevent urine leakage. Try to hold each Kegel for a slow count to five. You probably wont be able to hold them for thatlong at first, but keep practicing. It will get easier as your pelvic floor gets stronger. Eventually, special weights that you place in your vagina may be recommended to help make your Kegels even more effective. [employer] Patient Education Copyright 2009 - 2010 [employer] except where otherwise noted. Here are some helpful tips for your urinary incontinence: (This education is for all patients over 65 regardless of symptoms) Practice Kegel exercises Use the restroom every 2 hours throughout the day Limit caffeine, alcohol, spicy foods, and acidic foods Keep a bladder diary Limit fluid intake 3-4 hours before bed Lose weight Prevent constipation Take fluid pills at a time when can get to the bathroom quickly Control sugar better if diabetic Limit fluid intake to 60 oz. per day Any questions, please feel free to contact our office. documented in this encounter Progress Notes * Deepti Garcia MD - 11/03/2024 12:06 PM EST Subjective Marguerite Euceda is a 84 year old female. Chief Complaint Patient presents with Physical-Exam Pt here today for a complete physical and her 6 month return visit HPI: Here for routine check up Pt has hx of large stroke early 50s , at Lt MCA , frontal and temporal Taking plavix Currently not f/u with neuro Her previous brain MRI in 2020 showed Minimal hemosiderin deposition within the old infarct in the left MCA. Large old infarct in left MCA territory including left frontal and temporal lobes as well as insula. Minimal encephalomalacia inthe medial right frontal lobe. Ayan-hv-otejhpsg chronic microvascular changes and global volume loss Family noticed some cognitive function decline She has chronic speech problem, falls hx, chronic urinary incontinence , generalized weakness She still lives at home - family checks her out regularly/daily Will order watch case polisher for possible living facility search and her medical needs Discussed about possible dementia medication but due to her vascular dementia, would focus on prevention of vascular event Couldn't tolerate statin - elevated LFTs Taking plavix Sweat tea drinks, advised to stop Recurrent UTI , taking ABx now Ok to repeat urine test next week Adult pull up diaper order And getting is getting harder, will order high toilet seat to prevent fall from bathroom use Mild depression, taking lexapro PMH: Patient Active Problem List Diagnosis Migraine with aura Cystocele, midline Cerebrovascular disease, arteriosclerotic, post-stroke Dyslipidemia, goal LDL below 100 Generalized osteoarthritis History of recurrent UTI (urinary tract infection) JD (stress urinary incontinence, female) Continuous leakage of urine Nocturnal enuresis Rectocele Prolapse of vaginal vault after hysterectomy Cystocele, lateral Tympanic membrane perforation, bilateral Dizziness Senile osteoporosis Dysphagia Major depressive disorder, single episode, mild (HCC) Encephalomalacia with cerebral infarction (HCC) Current Outpatient Medications Medication Sig Dispense Refill TIMOPTIC OCUDOSE 0.25 % OP SOLN Instill into eye 2 times a day. 0 0 Cholecalciferol (VITAMIN D) 2000 units Tablet Take 2,000 Units by mouth daily. B Complex-C CAPS Take by mouth daily. Triamcinolone Acetonide 0.1 % External Cream (Aristocort) Apply topically to affected area 2 times a day. To lower legs 80 g 5 Dorzolamide HCl-Timolol Mal 2-0.5 % Ophthalmic Solution (Cosopt Ocumeter Plus) Instill 1 Drop into both eyes in the morning and 1 Drop before bedtime. Clopidogrel Bisulfate 75 MG Oral Tablet (pLAVix) TAKE 1 TABLET BY MOUTH EVERY MORNING 90 Tablet 1 B-12 1000 MCG Oral Tablet One tab every --. Metoprolol Succinate ER 25 MG Oral Tablet Extended Release 24 Hour (toPROL XL) TAKE ONE TABLET BY MOUTH IN THE MORNING 90 Tablet 3 Escitalopram Oxalate 10 MG Oral Tablet (Lexapro) TAKE 1/2 TABLET BY MOUTH ONCE DAILY for 1 week then take 1 tablet once daily 90 Tablet 3 Cefdinir 300 MG Oral Capsule (Omnicef) Take 1 Capsule by mouth in the morning and 1 Capsule before bedtime. Omeprazole 40 MG Oral Capsule Delayed Release (PriLOSEC) Take 1 Capsule by mouth in the morning. 1 hour before the first meal of the day. 90 Capsule 3 No current facility-administered medications for this visit. Past Medical History: Diagnosis Date Cerebrovascular event, ill-defined, within last 8 weeks 2002 3 separate episodes ? TIA's Esophageal reflux HTN, goal below 140/90 Macular degeneration Menopause Migraine Osteoarthrosis, unspecified whether generalized or localized, lower leg Retinal tear Past Surgical History: Procedure Laterality Date COLONOSCOPY W/ BIOPSY (RECTUM) 12/31/2008 diverticulosis repeat in 3-5 yrs COLONOSCOPY, DIAGNOSTIC (RECTUM) 07/01/2015 normal bx, diverticulosis/COLONOSCOPY FLEXIBLE PROXIMAL DIAGNOSTIC performed by Tavo Amin MD at [facility] COLONOSCOPY, DIAGNOSTIC (RECTUM) 07/01/2019 internal hemorrhoids/diverticulosis sigmoid colon/biopsies show adenomatous polyps/recall 5 years/COLONOSCOPY FLEXIBLE PROXIMAL DIAGNOSTIC performed by Stacy Serrato DO at [facility] EGD, FLEXIBLE, DIAGNOSTIC 07/01/2015 normal bx/ESOPHAGOGASTRODUODENOSCOPY (EGD), FLEXIBLE, TRANSORAL, DIAGNOSTIC performed by Tavo Amin MD at [facility] EGD, FLEXIBLE, DIAGNOSTIC 07/01/2019 erythematous mucosa in stomach/biopsies show mild irritation of stomach/ESOPHAGOGASTRODUODENOSCOPY (EGD), FLEXIBLE, TRANSORAL, DIAGNOSTIC performed by Stacy Serrato DO at [facility] EGD, FLEXIBLE, DIAGNOSTIC 05/18/2021 normal / ESOPHAGOGASTRODUODENOSCOPY (EGD), FLEXIBLE, TRANSORAL, DIAGNOSTIC performed by Jordan Zhang MD at [facility] EGD, FLEXIBLE, W/BIOPSY 05/24/2007 normal REMOVE CATARACT, INSERT LENS PROSTH 2001 left REPAIR BLADDER & VAGINA, CYSTOCELE 2006 dr nix TOTAL HYSTERECTOMY 1982 BSO, endometriosus Review of patient's allergies indicates: Allergen Reactions Macrobid [Nitrofurantoin] Nausea and diarrhea, upset her stomach Morphine Severe headache Other reaction(s): severe headache Family History Problem Relation Name Age of Onset Cancer Mother brain Other (Other) Brother aneurysm Other (Other) Grandmother (Maternal) aneurysm Other (Other) Grandmother (Paternal) aneurysm No Known Problems Daughter No Known Problems Daughter No Known Problems Son Heart Disorder Son Family Status Relation Status Mo at age 52 brain tumor Fa at age 63 emphysema/ heart failure/ alcoholism Bro Alive Bro Alive Bro Alive Bro Alive Bro MGMA (Not Specified) PGMA (Not Specified) Pollo Alive Pollo Alive Son Alive Son Alive Social History Socioeconomic History Marital status: Spouse name: Not on file Number of children: 4 Years of education: Not on file Highest education level: Not on file Occupational History 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 Employer: [employer] Comment: [place] Tobacco Use Smoking status: Never Passive exposure: Never Smokeless tobacco: Never Vaping Use Vaping status: Never Used Substance and Sexual Activity Alcohol use: Not Currently Drug use: No Sexual activity: Never Other Topics Concern Service Not Asked Blood Transfusions Not Asked Caffeine Concern Not Asked Occupational Exposure Not Asked Hobby Hazards Not Asked Sleep Concern Not Asked Stress Concern Not Asked Weight Concern Not Asked Special Diet Yes Comment: no ca Back Care Not Asked Exercise Not Asked Bike Helmet Not Asked Seat Belt Not Asked Self-Exams No Social History Narrative Employed at [employer] Social Needs Financial Resource Strain: Low Risk (11/03/2024) Financial Resource Strain Do you have any trouble paying for your medications, or do you think you might in the future? (Adult - for ages 18 years and over): No Does your family have trouble paying for medicine? (Household - for ages 0-17 years): Not on file Food Insecurity: No Food Insecurity (11/03/2024) Food Insecurity Do you need food for this week? (Adult - for ages 18 years and over): No Are you able to get enough food for your family? (Household - for ages 0-17 years): Not on file Does your family need food this week? (Household - for ages 0-17 years): Not on file Do you always have enough food for your family? (Household - for ages 0-17 years): Not on file Transportation Needs: No Transportation Needs (11/03/2024) Transportation Needs Do you have trouble getting a ride to medical visits or work? (Adult - for ages 18 years and over):Not on file Does your family have a hard time getting a ride to doctors visits? (Household - for ages 0-17 years): Not on file Has lack of transportation kept you from medical appointments, meetings, work, or from getting things needed for daily living? Check all that apply. (Adult - for ages 18 years and over): No Do you (or your family) have trouble finding or paying for a ride (transportation)? (Household - for ages 0-17 years): Not on file Social Connections: Socially Integrated (11/03/2024) Social Connections How often do you feel lonely or isolated from those around you? (Adult - for ages 18 years and over): Never Housing Stability: Low Risk (11/03/2024) Housing Stability Do you currently live in a penitentiary or have no steady place to sleep at night? (Adult - for ages 18 years and over): No Do you think you are at risk of becoming homeless? (Adult - for ages 18 years and over): Not on file Does your family worry about paying for your home or becoming homeless? (Household - for ages 0-17 years): Not on file Are you homeless or worried that you might be in the future? (Adult - for ages 18 years and over): No Are you (or your family) homeless or worried that you might be in the future? (Household - for ages0-17 years): Not on file Review of Systems Constitutional: Positive for activity change (declining) and fatigue. Negative for appetite change,chills, diaphoresis, fever and unexpected weight change. HENT: Positive for hearing loss and trouble swallowing. Eyes: Positive for visual disturbance (maclar degeneration). Respiratory: Negative for cough, chest tightness, shortness of breath and wheezing. Cardiovascular: Negative for chest pain, palpitations and leg swelling. Gastrointestinal: Negative for abdominal distention, abdominal pain, nausea and vomiting. Endocrine: Negative. Genitourinary: Urinary incontinence Musculoskeletal: Positive for arthralgias and gait problem. Neurological: Positive for dizziness, speech difficulty, weakness and light- headedness. Negative for seizures and syncope. Psychiatric/Behavioral: Positive for confusion, dysphoric mood and sleep disturbance. Negative for agitation and behavioral problems. The patient is nervous/anxious. Objective BP 109/75 | Pulse 90 | Temp 97.6 F (36.4 C) (Infrared ) | Resp 16 | Ht 5' 3.25" (1.607 m) | Wt 109 lb (49.4 kg) | SpO2 98% | BMI 19.16 kg/m | BSA 1.48 m Physical Exam Constitutional: General: She is not in acute distress. Appearance: Normal appearance. She is not ill-appearing, toxic-appearing or diaphoretic. Comments: Cachetic HENT: Head: Normocephalic and atraumatic. Nose: Nose normal. Eyes: Extraocular Movements: Extraocular movements intact. Cardiovascular: Rate and Rhythm: Normal rate and regular rhythm. Pulses: Normal pulses. Heart sounds: Normal heart sounds. No murmur heard. Pulmonary: Effort: Pulmonary effort is normal. No respiratory distress. Breath sounds: No stridor. No wheezing, rhonchi or rales. Chest: Chest wall: No tenderness. Musculoskeletal: General: Tenderness present. Right lower leg: No edema. Left lower leg: No edema. Neurological: Mental Status: She is oriented to person, place, and time. Cranial Nerves: Cranial nerve deficit present. Motor: Weakness present. Gait: Gait abnormal. Comments: Not to time Psychiatric: Behavior: Behavior normal. Comments: Depression anxiety ASSESSMENT/PLAN: Cerebrovascular disease, arteriosclerotic, post-stroke (Primary) - POPULATION HEALTH REFERRAL OP - HOME HEALTH REFERRAL OP Risk and functional assessment JD (stress urinary incontinence, female) - DURABLE MEDICAL EQUIPMENT Recurrent UTI - CULTURE, URINE, QUANTITATIVE; Future; Expected date: 11/10/2024 Confusion - POPULATION HEALTH REFERRAL OP - HOME HEALTH REFERRAL OP Encephalomalacia with cerebral infarction (HCC) - POPULATION HEALTH REFERRAL OP - HOME HEALTH REFERRAL OP Balance disorder - POPULATION HEALTH REFERRAL OP - HOME HEALTH REFERRAL OP - DURABLE MEDICAL EQUIPMENT Generalized osteoarthritis - POPULATION HEALTH REFERRAL OP - HOME HEALTH REFERRAL OP - DURABLE MEDICAL EQUIPMENT Failure to thrive in adult - POPULATION HEALTH REFERRAL OP - HOME HEALTH REFERRAL OP At high risk for falls - POPULATION HEALTH REFERRAL OP - HOME HEALTH REFERRAL OP - DURABLE MEDICAL EQUIPMENT Dyslipidemia, goal LDL below 100 Gastroesophageal reflux disease with esophagitis without hemorrhage - Omeprazole 40 MG Oral Capsule Delayed Release (PriLOSEC); Take 1 Capsule by mouth in the morning.1 hour before the first meal of the day. Follow Up: Return in about 4 months (around 03/03/2025) for Clinic Visit. | For: Clinic Visit | Check-out note: Home health road manager With PCP road manager Fall precaution PT/OT, nursing, home health Cont current meds Hydration No sweet tea Refilled med DME orders Spent 40 min Deepti Garcia MD * Kika Hull LPN - 11/03/2024 11:52 AM EST Fall Risk Plan of Care Documentation: - Current medications reconciled Patient encouraged to: - Exercise - Provide education materials for Core strengthening - Utilize assistive/adaptive devices - Provide education materials - Avoid multifocal lenses when walking - Avoid hazards in home - Provide education materials - Maintain a regular toileting schedule Kika Hull LPN 11/03/2024 documented in this encounter Nursing Notes * Kika Hull LPN - 11/03/2024 11:39 AM EST Chief Complaint Patient presents with Physical-Exam Pt here today for a complete physical and her 6 month return visit documented in this encounter Plan of Treatment Upcoming Encounters Date Type Department Care Team (Late st Contact Info) Description 12/10/2024 11:30 AM EST Office Visit Otolaryngology [facility] [address] [address] Ilene Ruiz PA-C [address] [place] [address] 12/16/2024 11:00 AM EST Imaging Radiology [facility] [address] [place] [phone] 03/03/2025 1:00 PM EDT Office Visit [facility] [address] [facility] [address] [place] [phone] Melecio Nye MD [address] [place] [id number] Scheduled Orders Name Type Priority Associated Diagnoses Orde r Schedule CULTURE, URINE, QUANTITATIVE Lab Routine Recurrent UTI Expected: 11/10/2024, Expires: 11/03/2025 Scheduled Procedures Name Priority Associated Diagnoses Date/Ti me COLONOSCOPY FLEXIBLE PROXIMA L DIAGNOSTIC Recall History of colonic polyps Scheduled Referrals Name Type Priority Associated Diagnoses Orde r Schedule POPULATION HEALTH REFERRAL OP Referral Within 10 days (routine) Confusion Cerebrovascular disease, arteriosclerotic, post-stroke Encephalomalacia with cerebral infarction (HCC) Balance disorder 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 At high risk for falls Ordered: 11/03/2024 HOME HEALTH REFERRAL OP Referral Within 10 days (routine) Confusion Cerebrovascular disease, arteriosclerotic, post-stroke Encephalomalacia with cerebral infarction (HCC) Balance disorder 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 At high risk for falls Ordered: 11/03/2024 Health Maintenance Due Date Last Done Comments Zoster Vaccines (2 of 3) 05/05/2014 03/10/2014, 10/2012 Adult Wellness Visit 06/21/2021 06/21/2020 COVID-19 Vaccine ( season) 2024 11/03/2021, 02/03/2021, 01/13/2021 Colonoscopy 07/01/2024 07/01/2019, 06/22, 07/01/2015, Additional history exists DXA Scan 11/22/2024 11/22/2022, 10/2022, 03/11/2015 Depression Monitoring 04/25/2025 04/25/2024 DTap/Tdap Vaccines (2 - Td or Tdap) 10/22/2027 10/22/2017, 12/21/2011 RETIRED - COLONOSCOPY-EVERY 5 YRS AGES 18-100 Discontinued 07/01/2019, 07/01/2019, 07/01/2015, Additional history exists Pneumococcal Vaccine: 50+ Years Completed 10/26/2023, 08/22/2007 VITAMIN D LEVEL ONCE IN A LIFETIME-USE SMARTSET# [id number] Completed 12/13/2023, 12/13/2022, 08/27/2014, Additional history exists [...] Not on filedocumented as of this encounter Visit Diagnoses Diagnosis Cerebrovascular disease, arteriosclerotic, post-stroke- Primary Cerebral atherosclerosis Risk and functional assessment Screening for unspecified condition JD (stress urinary incontinence, female) Female stress incontinence Recurrent UTI Urinary tract infection, site not specified Confusion 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) Unspecified cerebral artery occlusion with cerebral infarction Balance disorder Other symptoms involving nervous and musculoskeletal systems Generalized osteoarthritis Generalized osteoarthrosis, unspecified site Failure to thrive in adult Adult failure to thrive At high risk for falls Personal history of fall Dyslipidemia, goal LDL below 100 Other and unspecified hyperlipidemia Gastroesophageal reflux disease with esophagitis without hemorrhage documented in this encounter Advance Directives Documents on File Type Date Recorded 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
--- OUTSIDE RECORDS SUMMARY | 2024-12-07 11:45 | External Medical Summary | Summary of Care ---
Author Name Unknown Organization [facility] Address [address] [place] [address] Phone [phone] Care Team Providers Care Muleser Name Role Phone Melecio Nye MD Primary Care Provider [phone] Encounter Details Date Type Department Care Team (Late st Contact Info) Description 11/10/2024 Population Health External Data Unspecified Department Allergies Active Allergy Reactions Criticality Noted Date Comments Nitrofurantoin 11/30/2015 Nausea and diarrhea, upset her stomach Morphine 05/12/2011 Severe headache Other reaction(s): severe headache documented as of this encounter (statuses as of 11/10/2024) Medications TIMOPTIC OCUDOSE 0.25 % OP SOLN [...] s:Low vitamin B12 level One tab every M-W-. 08/29/2024 Active Metoprolol Succinate ER 25 MG [...] as of this encounter (statuses as of 11/10/2024) Active Problems Problem Noted Date Diagnosed Date [...] as of this encounter (statuses as of 11/10/2024) Resolved Problems Problem Noted Date Diagnosed Date [...] as of this encounter (statuses as of 11/10/2024) Immunizations Name Administration Dates Next Due COVID-19 mRNA, LNP-s, No Pre serve, 2-Dose Series (Pfizer) 11/03/2021,02/03/2021,01/13/2021 Pneumococcal Conjugate Vacci ne, 20-valent ([id number]) 10/26/2023 Pneumococcal Polysaccharide PPV23 (Pneumovax) 08/22/2007 Season [...] 12/10/2024 11:30 AM EST Office Visit Otolaryngology [facility] [address] [address] Ilene Ruiz PA-C [address] [place] [address] 12/16/2024 11:00 AM EST Imaging Radiology [facility] [address] [phone] 03/03/2025 1:00 PM EDT [facility] [address] [facility] [place] [phone] Melecio Ney MD [facility] [address] Scheduled Procedures Name Priority Associated Diagnoses Date/Ti [...] D LEVEL ONCE IN A LIFETIME-USE SMARTSET# [id number] Completed 12/13/2023, 12/13/2022, 08/27/2014, Additional history exists [...] Documents on File Type Date Recorded 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
--- OUTSIDE RECORDS SUMMARY | 2024-12-07 11:45 | External Medical Summary | Summary of Care ---
Author Name Unknown Organization [facility] Address [address] [place] [address] Phone [phone] Care Team Providers Care Brilliandeer Lopper Name Role Phone Melecio Nye MD Primary Care Provider [phone] Reason for Visit * Reason Onset Date Comments Referral 11/04/2024 Fax Home Health Referral to [facility] Health Encounter Details Date Type Department Care Team (Late st Contact Info) Description 11/04/2024 Telephone Care Coordination and Integration [address] [place] [address] Radha Boyce, RADHA [address] [place] [address] Referral (Fax Home Health Referral to [facility]... Allergies Active Allergy Reactions Criticality Noted [...] mRNA, LNP-s, No Pre serve, 2-Dose Series ([employer]) 11/03/2021,02/03/2021,01/13/2021 Pneumococcal Conjugate Vacci ne, 20-valent ([id number]) 10/26/2023 Pneumococcal Polysaccharide PPV23 (Pneumovax) 08/22/2007 Season [...] encounter Miscellaneous Notes * Telephone Encounter - Yasmine Denise OSA - 11/06/2024 4:25 PM EST This was taken care of by Torsten ryan. 11/06/2024 * Telephone Encounter - Radha Boyce RN - 11/04/2024 2:38 PM EST A Home Health referral was placed during yesterday's clinic visit. Front office staff, please fax the home health referral to [facility]. Please also ensure patient's daughter's phone number is on the referral as she is the one who should be contacted to arrange home health visits. Thanks, Radha Boyce RN, BSN [facility] [employer] Trimmer [phone] documented in this encounter Plan of Treatment Upcoming Encounters Date Type Department Care Team (Late st Contact Info) Description 12/10/2024 11:30 AM EST Office Visit Otolaryngology [facility] [address] [place] [address] Ilene Ruiz PA-C [address] [place] [address] 12/16/2024 11:00 AM EST Imaging Radiology [facility] [address] [place] [phone] 03/03/2025 1:00 PM EDT Office Visit [facility] [address] [facility] [place] [phone] [facility]lecio Nye MD [address] [facility] [place] [phone] Scheduled Procedures Name Priority Associated Diagnoses Date/Ti [...] D LEVEL ONCE IN A LIFETIME-USE SMARTSET# [id number] Completed 12/13/2023, 12/13/2022, 08/27/2014, Additional history exists [...] Documents on File Type Date Recorded 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
--- OUTSIDE RECORDS SUMMARY | 2024-12-07 11:45 | External Medical Summary ---
Author Name Unknown Address Unknown Organization [id number]:[facility] - [address] [place] [id number] Laboratory Report Ordering Provider Test Date Status FINA MORENO 11/18/2024 07:35:07 Final Observation Date Value Abnormality Reference (Units) Status Bacteria identified in Specimen by Culture 11/18/2024 07:35:07 No significant growth Final Test: Culture, Urine, Quanti tative
Specimen Source: Urine, Unspecified
Specimen Type: Urine
Specimen Date: 11/18/202435
Result Date: 11/19/2024 1106
Result Status: Final result
Resulting Lab: [facility]
[address]
[place] [id number]

CULTURE

No significant growth

null Performing Location [facility] - [address] [facility] [address]
--- OUTSIDE RECORDS SUMMARY | 2024-12-07 11:45 | External Medical Summary | Summary of Care ---
Author Name Unknown Organization [facility] Address [address] [place] [address] Phone [phone] Care Team Providers Care Supervisor Sewing Department Name Role Phone Melecio Nye MD Primary Care Provider [phone] Encounter Details Date Type Department Care Team (Late st Contact Info) Description 11/03/2024 Referral Triage Care Coordination and Integration [address] [place] [address] Poornima Centeno OSA [address] [place] [address] Allergies Active Allergy Reactions Criticality Noted Date Comments Nitrofurantoin 11/30/2015 Nausea and diarrhea, upset her stomach Morphine 05/12/2011 Severe headache Other reaction(s): severe headache documented as of this encounter (statuses as of 11/03/2024) Medications TIMOPTIC OCUDOSE 0.25 % OP SOLN Instill into eye 2 times a day. 0 0 9 Active Cholecalciferol (VITAMIN D) 2000 units Tablet Take 2,000 Units by mouth daily. Active B Complex-C CAPS Take by mouth daily. Active Triamcinolone Acetonide 0.1 % External Cream (Aristocort)Ind ications:Dermat itis Apply topically to affected area 2 times a day. To lower legs 80 g 5 3 Active Dorzolamide HCl-Timolol Mal 2-0.5 % Ophthalmic Solution (Cosopt Ocumeter Plus) Instill 1 Drop into both eyes in the morning and 1 Drop before bedtime. 3 Active Clopidogrel Bisulfate 75 MG Oral Tablet (pLAVix)Indicat ions:Cerebrovas cular disease, arterioscleroti c, post-stroke TAKE 1 TABLET BY MOUTH EVERY MORNING 90 Tablet 1 4 Active B-12 1000 MCG Oral TabletIndicatio ns:Low vitamin B12 level One tab every M-W-F. 4 Active Metoprolol Succinate ER 25 MG Oral Tablet Extended Release 24 Hour (toPROL XL)Indications: HTN, age 0-18 TAKE ONE TABLET BY MOUTH IN THE MORNING 90 Tablet 3 4 Active Escitalopram Oxalate 10 MG Oral Tablet (Lexapro)Indica tions:Current mild episode of major depressive disorder, unspecified whether recurrent (HCC) TAKE 1/2 TABLET BY MOUTH ONCE DAILY for 1 week then take 1 tablet once daily 90 Tablet 3 4 Active Cefdinir 300 MG Oral Capsule (Omnicef) Take 1 Capsule by mouth in the morning and 1 Capsule before bedtime. 5 Active Omeprazole 40 MG Oral Capsule Delayed Release (PriLOSEC)Indic ations:Gastroes ophageal reflux disease with esophagitis without hemorrhage Take 1 Capsule (40 mg) by mouth in the morning. 1 hour before the first meal of the day. 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 Not on file Not on file documented as of this encounter Plan of Treatment Upcoming Encounters Date Type Department Care Team (Late st Contact Info) Description 12/10/2024 11:30 AM EST Office Visit Otolaryngology [facility] [address] [address] Ilene Ruiz PA-C [address] [place] [phone] 12/16/2024 11:00 AM EST Imaging Radiology [facility] [address] [place] [phone] Scheduled Procedures Name Priority Associated Diagnoses Date/Ti me COLONOSCOPY FLEXIBLE PROXIMA L DIAGNOSTIC Recall History of colonic polyps Health Maintenance Due Date Last Done Comments Zoster Vaccines (2 of 3) 05/05/2014 03/10/2014, 10/2012 Adult Wellness Visit 06/21/2021 06/21/2020 COVID-19 Vaccine (4 - 2024-25 season) 2024 11/03/2021, 02/03/2021, 01/13/2021 Colonoscopy 07/01/2024 07/01/2019, 06/22, 07/01/2015, Additional history exists DXA Scan 11/22/2024 11/22/2022, 10/2022, 03/11/2015 Depression Monitoring 04/25/2025 04/25/2024 DTap/Tdap Vaccines (2 - Td or Tdap) 10/22/2027 10/22/2017, 12/21/2011 RETIRED - COLONOSCOPY-EVERY 5 YRS AGES 18-100 Discontinued 07/01/2019, 07/01/2019, 07/01/2015, Additional history exists Pneumococcal Vaccine: 50+ Years Completed 10/26/2023, 08/22/2007 VITAMIN D LEVEL ONCE IN A LIFETIME-USE SMARTSET# [id number] Completed 12/13/2023, 12/13/2022, 08/27/2014, Additional history exists [...] Documents on File Type Date Recorded Patient Booth Operator Expl anation Advance Directives and Living Will 04/16/2017 LIVING WILL Care Teams Supervisor Sewing Department Relationship Specialty Start Date End Date Melecio Nye MD PCP - General Family Medicine 12/11/22 documented as of this encounter
--- NOTE | 2024-12-07 11:55 | Emergency Department Note ---
Impression & Plan Unwitnessed fall, Dementia, Generalized weakness ED Provider Note NAME: BINDU CAVAZOS AGE: 84 SEX: F : 1940 ARRIVES VIA: Ambulance INFORMANT: Patient ED PROVIDER(S): Jg Long MD CHIEF COMPLAINT: Unwitnessed fall, prolonged downtime. PLAN: Disposition: Admit MEDICAL DECISION MAKING: The patient is a pleasant 84-year-old woman with a past medical history of prior stroke with residual dysarthria on Plavix, hypertension, GERD who presents to the emergency department via EMS for unwitnessed fall where family report they had spoken to her on the phone as 9 around 8 PM but found on the ground this morning. Per EMS report the patient lives by herself and family has been attempting to get her into a facility. On evaluation the patient is in no distress, afebrile with heart rate in the 90s and blood pressure 150s/80s and vital signs otherwise stable. She appears clinically dry. She has pressure contusion and superficial sacral ulceration that appears chronic. She is moving all extremities equally with generalized weakness. There is a pressure contusion of the right forehead and left elbow. However no gross deformity. EKG without overt acute ischemia. CXR negative for acute cardiopulmonary process per my personal preliminary review/interpretation. WBC within normal limits. H/H within limits. Platelets 1 25K, similar to prior. Chemistry without metabolic acidosis. Phosphorus 2.1 electrolytes otherwise unremarkable. LFTs are normal. CPK mildly above normal at 247. Procalcitonin is undetectable. TSH within normal limits. Lipase is normal. Respiratory BioFire was negative. UA ordered but sample yet to be obtained. CT of the head, C-spine, chest and pelvis were performed and were negative for acute traumatic findings or acute process otherwise. Given the patient's unwitnessed fall and family's concern for safety at home patient was referred to hospitalist service for admission. Case was discussed with Bo Reid PAC, with Bo Chandra hospitalist who will evaluate the patient for admission. Triage Nursing notes reviewed and agree them. Prior/external medical records reviewed Vital Signs: reviewed Differential diagnosis: Fracture, dislocation, contusion, intra-abdominal, pneumothorax, intrathoracic, intracranial, neurologic, compartment syndrome, rhabdomyolysis, as well as other pathologies. ER treatment provided: See below. Diagnostics interpreted by me: ECG: Sinus rhythm with short NV, 84 bpm, no ectopy, nonspecific ST and T wave abnormality, no overt ST elevation or depression, QTc 380, QRS 80. Cardiac Monitoring: An order for continuous cardiac monitoring was placed and demonstrated Sinus rhythm with short NV, 84 bpm, no ectopy. Laboratory studies: See below Imaging studies: See below Consultation(s): Bo Reid PAC, with Christopher Chandrasci[facility] hospitalist HPI: The patient is a pleasant 84-year-old woman with a past medical history of prior stroke with residual dysarthria on Plavix, hypertension, GERD who presents to the emergency department via EMS for unwitnessed fall where family report they had spoken to her on the phone as 9 around 8 PM but found on the ground this morning. Per EMS report the patient lives by herself and family has been attempting to get her into a facility. ROS: See above HPI for pertinent positives & negatives. A total of 10 systems reviewed and were otherwise negative. VITALS:See Below PHYSICAL EXAMINATION: GENERAL: Awake, alert, fatigued-appearing, in no distress HENT: Normocephalic, pressure contusion of the right forehead. Oropharynx with dry mucous membranes and otherwise unremarkable. EYES: Normal conjunctiva. Sclera non-icteric. NECK: Supple. No nuchal rigidity. FROM. No JVD. RESPIRATORY: Clear to auscultation. CARDIAC: Regular rate, normal rhythm. Extremities warm and well perfused. Pulses equal. ABDOMEN: Soft, non-distended. No tenderness to palpation. No rebound or guarding. No masses. MUSCULOSKELETAL: Chest examination reveals no tenderness. The back is symmetrical on inspection without obvious abnormality. There is no CVA tenderness to palpation. No joint edema. Pressure contusion and superficial sacral ulceration that appears chronic. She is moving all extremities equally with generalized weakness. Pressure contusion of left elbow, no gross deformity. LOWER EXTREMITIES: Calves are equal size bilaterally and non-tender. No edema. No discoloration. NEURO: Appears to be at neurologic baseline with dysarthria. Exhibits generalized weakness in all extremities without focal weakness. SKIN: No rash or jaundice noted. Jg Long MD Past Med/Surg History Problem List (Updated 12/07/24 @ 23:11 by Jg Long MD) Generalized weakness (Acute) Dementia (Acute) Hypophosphatemia Acute metabolic encephalopathy Unwitnessed fall (Acute) Foot cramps (Acute) Medical History GERD (gastroesophageal reflux disease) On clopidogrel therapy H/O ischemic left MCA stroke Family History Other Family history non-contributory Social History Smoking Status: Never smoker Hx Alcohol Use: No Hx Substance Use: No Preferred Language: Lithuanian Communication Ability: Impaired Mechanic Insulator Required: No Current Living Situation: Alone Other Information That Helps Us Care for You: No Feels Safe at Home: Yes Assistive Devices: Walker Allergies Allergies Allergy/AdvReac Type Severity Reaction Status Date / Time morphine Allergy Unknown severe Unverified 10/31/24 13:35 headache Home Meds Home Medications Medication Instructions Recorded Confirmed clopidogrel 75 mg tablet 75 mg PO [facility] 04/05/20 12/07/24 escitalopram oxalate 10 mg tablet 10 mg PO UD 05/09/22 12/07/24 riboflavin (vitamin B2) 400 mg 400 mg PO [facility] 05/09/22 12/07/24 tablet metoprolol succinate 25 mg 25 mg PO [facility] 10/31/24 12/07/24 tablet,extended release 24 hr omeprazole 40 mg capsule,delayed 40 mg PO DAILY 10/31/24 12/07/24 release Results & Data (ED) Vital Signs Vital Signs - 24 hr 12/07/24 11:47 12/07/24 12:26 Temperature 37.5 C Temperature Source Axillary Pulse Rate 92 H 87 Pulse Strength Normal Respiratory Rate 16 Respiratory Effort / Characteristics Non-Labored Spontaneous Respiratory Depth Normal Respiratory Pattern Regular Blood Pressure 156/82 H Blood Pressure Mean 106 Blood Pressure Position Lying Pulse Oximetry 97 Oxygen Delivery Method Room Air Sepsis Recent Fever Within 48 Hours No Sepsis New/Unexplained Change in Mental Status No Sepsis Action Taken by Nursing No Action Required Laboratory Data 12/07/24 11:54 12/07/24 11:54 Lab Results 12/07/24 12/07/24 Range/Units 11:54 11:58 WBC 6.94 (4.8-10.8) K/ul RBC 4.15 L (4.20-5.40) M/uL Hgb 12.8 (12.0-16.0) g/dl POC Hgb 13.3 (12.0-16.0) g/dl Hct 38.7 (37.0-47.0) % POC Hct 39 (37-47) % MCV 93.3 (80.0-100.0) fL MCH 30.8 (25.0-34.0) pg MCHC 33.1 (32.0-36.0) g/dL RDW Std Deviation 43.9 (36.4-46.3) fL RDW Coeff of [place] 12.8 (11.5-14.5) % Plt Count 125 L (130-400) K/uL MPV 11.5 (9.4-12.4) fL Immature Gran % (Auto) 0.1 % Neut % (Auto) 82.0 % Lymph % (Auto) 10.4 % Bryan % (Auto) 7.1 % Eos % (Auto) 0.1 % Baso % (Auto) 0.3 % Neut # (Auto) 5.69 (1.40-6.50) K/uL Lymph # (Auto) 0.72 L (1.20-3.40) K/uL Bryan # (Auto) 0.49 (0.11-0.59) K/uL Eos # (Auto) 0.01 (0.00-0.50) K/uL Baso # (Auto) 0.02 (0.00-0.20) K/uL Immature Gran # (Auto) 0.01 (0.01-0.20) K/uL PT 11.0 (9.0-12.0) Seconds INR 1.0 (0.9-1.1) APTT 24 (21-31) Seconds PTT Ratio 0.9 POC Sodium 140 (135-144) mmol/L Sodium 140 (136-145) mmol/L POC Potassium 3.6 (3.3-5.0) mmol/L Potassium 3.5 (3.5-5.1) mmol/L POC Chloride 102 (101-112) mmol/L Chloride 102 (98-107) mmol/L Carbon Dioxide 32 (21-32) mmol/L POC Total CO2 30 (24-31) mmol/L Anion Gap 6 (3-11) POC Anion Gap 14.0 L (16-25) mmol/L POC BUN 15 (7-18) mg/dl BUN 15 (6-23) mg/dl Creatinine 0.83 (0.6-1.2) mg/dl POC Creatinine 0.8 (0.6-1.3) mg/dl Est Cr Clr Drug Dosing Not Reportable eGFR 70.34 BUN/Creatinine Ratio 18.1 (10-20) Glucose 96 (70-99(Fasting)) mg/dl POC Glucose (other) 97 (70-99) mg/dl Calcium 9.7 (8.6-10.3) mg/dl POC Ioniz Calcium Paul 1.19 (1.12-1.32) mmol/l Phosphorus 2.1 L (2.5-4.9) mg/dl Magnesium 1.8 (1.7-2.4) mg/dl Total Bilirubin 1.0 (0.2-1.0) mg/dl AST 23 (13-39) U/L ALT 10 (7-52) U/L Alkaline Phosphatase 61 (34-104) U/L Total Creatine Kinase 247 H (26-192) U/L Troponin I High Sens 11.5 (0-14) pg/ml Total Protein 7.4 (6.0-8.3) gm/dl Albumin 4.5 (3.4-5.0) gm/dl Globulin 2.9 (2.5-4.0) gm/dl Albumin/Globulin Ratio 1.6 (0.9-2) Lipase 17 (11-82) U/L Vitamin B12 657 (180-914) pg/ml Procalcitonin < 0.02 (0-0.5) ng/ml TSH 2.524 (0.300-4.500) uIu/ml Adenovirus (PCR) Not Detected (NotDetected) B. pertussis DNA (PCR) Not Detected (NotDetected) B.parapertussis DNA PCR Not Detected (NotDetected) C. pneumoniae DNA (PCR) Not Detected (NotDetected) Coronavirus OC43 (PCR) Not Detected (NotDetected) Coronavirus HKU1 (PCR) Not Detected (NotDetected) Coronavirus 229E (PCR) Not Detected (NotDetected) SARS-CoV-2 (PCR) Not Detected (NotDetected) Coronavirus NL63 (PCR) Not Detected (NotDetected) Human Metapneumovir PCR Not Detected (NotDetected) Influenza Type A (PCR) Not Detected (NotDetected) Influenza Type B (PCR) Not Detected (NotDetected) M. pneumoniae (PCR) Not Detected (NotDetected) Parainfluenza 1 (PCR) Not Detected (NotDetected) Parainfluenza 2 (PCR) Not Detected (NotDetected) Parainfluenza 3 (PCR) Not Detected (NotDetected) Parainfluenza 4 (PCR) Not Detected (NotDetected) RSV (PCR) Not Detected (NotDetected) Entero/Rhino (PCR) Not Detected (NotDetected) Administered Medications Folic Acid (Folic Acid 1 Mg Tab) 1 mg PO QAM [facility] Stop: 01/06/25 19:44 Last Admin: 12/07/24 20:18 Dose: 1 mg Documented By: TLM Dextrose/Lactated Ringer's (D5w And Lactated Ringers) 1,000 mls @ 80 mls/hr IV .[id number] LORE Stop: 12/08/24 19:29 Last Admin: 12/07/24 20:18 Dose: 80 mls/hr Documented By: TLM Melatonin (Melatonin 3 Mg Tab) 3 mg PO HS [facility] Stop: 01/06/25 20:59 Last Admin: 12/07/24 20:18 Dose: 3 mg Documented By: TLM Thiamine HCl (Thiamine Hcl 100 Mg Tab) 100 mg PO QAM LORE Stop: 01/06/25 19:44 Last Admin: 12/07/24 20:18 Dose: 100 mg Documented By: TLM Discontinued Medications Sodium Chloride (Nss) 1,000 mls @ 999 mls/hr IV .Q1H1M LORE Stop: 12/07/24 13:00 Last Infusion: 12/07/24 13:19 Dose: Infused Documented By: Admin: 12/07/24 12:18 Dose: 999 mls/hr Documented By: SNS Potassium Phosphate 15 mmol/ (Sodium Chloride) 255 mls @ 88 mls/hr IV ONE ONE Stop: 12/07/24 22:23 Last Admin: 12/07/24 20:18 Dose: 88 mls/hr Documented By: TLM Ioversol (Optiray 320 100ml) 94 ml IV ONCE ONE Stop: 12/07/24 12:29 Last Admin: 12/07/24 12:28 Dose: 94 ml Documented By: SHANON Potassium Phosphate (Potassium Phos 3 Mmol/1 Ml Infusion) 15 mmol IV NOW STA Stop: 12/07/24 19:19 Last Admin: 12/07/24 22:39 Dose: Not Given Documented By: TLM Imaging Data Radiologist's Impression: Abdomen/Pelvis CT 12/07/24 11:48 CT OF THE ABDOMEN AND PELVIS WITH CONTRAST CLINICAL HISTORY: Trauma COMPARISON STUDY: None. TECHNIQUE: Following IV administration of 94 mL of Optiray, axial images of the abdomen and pelvis were obtained from the lung bases to the proximal femurs. Images were reviewed in the axial, sagittal, and coronal planes. IV contrast was administered without complication. Automated exposure control was utilized for the study. A dose lowering technique was utilized adhering to the principles of ALARA. FINDINGS: No hemoperitoneum or pneumoperitoneum is present. There is no evidence for traumatic injury to the liver, spleen, adrenal glands, kidneys or pancreas. Several hepatic cysts are present. There are left-sided renal parapelvic cysts. There are calcified granulomas within the spleen. Adrenal glands and pancreas are unremarkable. There is no biliary or pancreatic ductal dilatation. There is sigmoid diverticulosis without evidence for acute diverticulitis. Caliber and wall thickness of small and large bowel are normal. No acute lumbar spine, pelvic or hip fractures are identified. IMPRESSION: No acute traumatic findings within the abdomen or pelvis. ACT 112: Negative or not required by law. Electronically signed by: Ernie Diaz M.D. 12/07/2024 12:[address] 12/07/24 11:48 CT OF THE CHEST WITH IV CONTRAST CLINICAL HISTORY: Trauma COMPARISON STUDY: Chest radiograph performed earlier today. Chest radiograph October 31, 2024. TECHNIQUE: Following IV administration of 94 mL of Optiray, helical axial images of the chest were obtained. Sagittal and coronal reconstructions were viewed as well as maximal intensity projections on an independent 3-D workstation. Automated exposure control was utilized for the study. A dose lowering technique was utilized adhering to the principles of ALARA. FINDINGS: There is no evidence for traumatic injury to the thoracic aorta. No mediastinal hematoma is present. The heart is mildly enlarged and there is moderate coronary artery calcification. No pneumothorax or pleural effusion is present. No pulmonary contusion is present. Subpleural opacities favor atelectasis. A few calcified granulomas are present. No acute rib or thoracic spine fracture is present. Abdomen and pelvis CT will be reported separately. IMPRESSION: No acute traumatic findings within the chest. ACT 112: Negative or not required by law. Electronically signed by: Ernie Diaz M.D. 12/07/2024 12:51 PM Chest X-Ray 12/07/24 11:48 XR chest 1V portable CLINICAL HISTORY: Trauma COMPARISON STUDY: Chest radiograph October 31, 2014. FINDINGS: Lung volumes are normal. Lungs are clear. There is no pneumothorax or pleural effusion. Cardiac size is normal. Mediastinal contours are normal. There is no evidence for pulmonary edema. IMPRESSION: No acute cardiopulmonary findings. ACT 112: Negative or not required by law. Electronically signed by: Ernie Diaz M.D. 12/07/2024 12:[address] 12/07/24 11:49 CT OF THE CERVICAL SPINE WITHOUT CONTRAST CLINICAL HISTORY: Trauma COMPARISON STUDY: Cervical spine CT October 31, 2024. TECHNIQUE: Helical axial images of the cervical spine were obtained without IV contrast. Sagittal and coronal reconstructions were viewed. Automated exposure control was utilized for the study. A dose lowering technique was utilized adhering to the principles of ALARA. FINDINGS: Moderate multilevel disc space narrowing and facet arthrosis within the cervical spine is present. Vertebral body heights are maintained. No acute cervical spine fracture or subluxation is present. There is no prevertebral edema. Facet joints are intact. IMPRESSION: No acute cervical spine fracture or subluxation. ACT 112: Negative or not required by law. Electronically signed by: Ernie Diaz M.D. 12/07/2024 12:[address] 12/07/24 11:49 CT OF THE HEAD WITHOUT CONTRAST CLINICAL HISTORY: Trauma COMPARISON STUDY: Head CT October 31, 2024. TECHNIQUE: Helical axial images of the head were obtained without IV contrast. Automated exposure control was utilized for the study. A dose lowering technique was utilized adhering to the principles of ALARA. FINDINGS: No acute intracranial hemorrhage, midline shift or mass effect is present. The ventricular system is stable. Left frontotemporal encephalomalacia is unchanged and favors an old infarct. The basal cisterns are patent. No extra- axial collections are present. There are no findings to suggest acute dural sinus thrombosis or acute territorial infarct. No significant calvarial abnormalities are present. Visualized portions of the sinuses and mastoid air cells are clear. Stable findings following left mastoidectomy. IMPRESSION: 1. No acute intracranial findings. No change in appearance of the brain. 2. No calvarial fractures. ACT 112: Negative or not required by law. Electronically signed by: Ernie Diaz M.D. 12/07/2024 12:25 PM Discharge Plan Visit Data Chief Complaint: Fall Stated Complaint: FALL ED Provider: Jg Long Discharge Problem: Unwitnessed fall, Dementia, Generalized weakness Patient Disposition: Admitted As Inpatient Discharge Instructions Interventions: ED Discharge Assessment Last Done: 12/07/24 14:40 Discharge Problem: Dementia Qualifiers: Dementia type: unspecified type Dementia severity: unspecified severity D ementia behavioral or psychological symptom: unspecified whether behavioral, psychotic, or mood disturbance or anxiety Qualified Code(s): F03.90 - Unspecified dementia, unspecified severity, without behavioral disturbance, psychotic disturbance, mood disturbance, and anxiety
[2024-12-07 12:10] LABS: iSTAT Creatinine 0.8 mg/dl (0.6-1.3); iSTAT Hemoglobin 13.3 g/dl (12.0-16.0); iSTAT Ionized Calcium 1.19 mmol/l (1.12-1.32); iSTAT Potassium 3.6 mmol/L (3.3-5.0)
[2024-12-07] MEDS: SODIUM CHLORIDE 0.9% 1,000 ML IV SCH (12:18)
[2024-12-07 12:20] LABS: Basophils # (auto) 0.02 K/uL (0.00-0.20); Basophils % (auto) 0.3 %; Eosinophils # (auto) 0.01 K/uL (0.00-0.50); Eosinophils % (auto) 0.1 %; Hematocrit (blood only) 38.7 % (37.0-47.0); Hemoglobin 12.8 g/dl (12.0-16.0); Immature Granulocytes # (auto) 0.01 K/uL (0.01-0.20); Immature Granulocytes % (auto) 0.1 %; Lymphocytes # (auto) 0.72 K/uL (1.20-3.40); Lymphocytes % (auto) 10.4 %; Mean Corpuscular Hemoglobin 30.8 pg (25.0-34.0); Mean Corpuscular Hgb Conc 33.1 g/dL (32.0-36.0); Mean Corpuscular Volume 93.3 fL (80.0-100.0); Mean Platelet Volume 11.5 fL (9.4-12.4); Monocytes # (auto) 0.49 K/uL (0.11-0.59); Monocytes % (auto) 7.1 %; Neutrophils # (auto) 5.69 K/uL (1.40-6.50); Platelet Count 125 K/uL (130-400); RDW Coefficient of Variation 12.8 % (11.5-14.5); RDW Standard Deviation 43.9 fL (36.4-46.3); Red Blood Count 4.15 M/uL (4.20-5.40); White Blood Count 6.94 K/ul (4.8-10.8)
--- NOTE | 2024-12-07 12:24 | XRay Report ---
XR chest 1V portable CLINICAL HISTORY: Trauma COMPARISON STUDY: Chest radiograph October 31, 2014. FINDINGS: Lung volumes are normal. Lungs are clear. There is no pneumothorax or pleural effusion. Car diac size is normal. Mediastinal contours are normal. There is no evidence for pulmonary edema. IMPRESSION: No acute cardiopulmonary findings. ACT 112: Negative or not required by law. Electronically signed by: Ernie Diaz M.D. 12/07/2024 12:23 PM
--- NOTE | 2024-12-07 12:26 | CT Scan Report ---
CT OF THE HEAD WITHOUT CONTRAST CLINICAL HISTORY: Trauma COMPARISON STUDY: Head CT October 31, 2024. TECHNIQUE: Helical axial images of the head were obtained without IV contrast. Automated exposure con trol was utilized for the study. A dose lowering technique was utilized adhering to the principles o f ALARA. FINDINGS: No acute intracranial hemorrhage, midline shift or mass effect is present. The ventricular system is stable. Left frontotemporal encephalomalacia is unchanged and favors an old infarct. The ba soren cisterns are patent. No extra-axial collections are present. There are no findings to suggest acu te dural sinus thrombosis or acute territorial infarct. No significant calvarial abnormalities are pr esent. Visualized portions of the sinuses and mastoid air cells are clear. Stable findings following left mastoidectomy. IMPRESSION: 1. No acute intracranial findings. No change in appearance of the brain. 2. No calvarial fractures. ACT 112: Negative or not required by law. Electronically signed by: Ernie Diaz M.D. 12/07/2024 12:25 PM
[2024-12-07] MEDS: OPTIRAY 320 100ml IV ONE (12:28)
[2024-12-07 12:32] LABS: Partial Thromboplastin Ratio 0.9; Partial Thromboplastin Time 24 Seconds (21-31)
[2024-12-07 12:35] LABS: Alanine Aminotransferase 10 U/L (7-52); Albumin Globulin Ratio 1.6 (0.9-2); Albumin Level 4.5 gm/dl (3.4-5.0); Alkaline Phosphatase 61 U/L (34-104); Anion Gap 6 (3-11); Aspartate Aminotransferase 23 U/L (13-39); BUN Creatinine Ratio 18.1 (10-20); Blood Urea Nitrogen 15 mg/dl (6-23); Calcium 9.7 mg/dl (8.6-10.3); Carbon Dioxide 32 mmol/L (21-32); Chloride 102 mmol/L (98-107); Creatine Kinase 247 U/L (26-192); Globulin 2.9 gm/dl (2.5-4.0); Glucose 96 mg/dl (70-99(Fasting)); Lipase 17 U/L (11-82); Magnesium 1.8 mg/dl (1.7-2.4); Phosphorus 2.1 mg/dl (2.5-4.9); Potassium 3.5 mmol/L (3.5-5.1); Sodium 140 mmol/L (136-145); Total Protein 7.4 gm/dl (6.0-8.3)
[2024-12-07 12:40] LABS: Troponin I High Sensitivity 11.5 pg/ml (0-14)
--- NOTE | 2024-12-07 12:43 | CT Scan Report ---
CT OF THE CERVICAL SPINE WITHOUT CONTRAST CLINICAL HISTORY: Trauma COMPARISON STUDY: Cervical spine CT October 31, 2024. TECHNIQUE: Helical axial images of the cervical spine were obtained without IV contrast. Sagittal a nd coronal reconstructions were viewed. Automated exposure control was utilized for the study. A do se lowering technique was utilized adhering to the principles of ALARA. FINDINGS: Moderate multilevel disc space narrowing and facet arthrosis within the cervical spine is p resent. Vertebral body heights are maintained. No acute cervical spine fracture or subluxation is pre sent. There is no prevertebral edema. Facet joints are intact. IMPRESSION: No acute cervical spine fracture or subluxation. ACT 112: Negative or not required by law. Electronically signed by: Ernie Diaz M.D. 12/07/2024 12:42 PM
[2024-12-07 12:49] LABS: Thyroid Stimulating Hormone 2.524 uIu/ml (0.300-4.500)
--- NOTE | 2024-12-07 12:53 | CT Scan Report ---
CT OF THE CHEST WITH IV CONTRAST CLINICAL HISTORY: Trauma COMPARISON STUDY: Chest radiograph performed earlier today. Chest radiograph October 31, 2024. TECHNIQUE: Following IV administration of 94 mL of Optiray, helical axial images of the chest were o btained. Sagittal and coronal reconstructions were viewed as well as maximal intensity projections o n an independent 3-D workstation. Automated exposure control was utilized for the study. A dose low ering technique was utilized adhering to the principles of ALARA. FINDINGS: There is no evidence for traumatic injury to the thoracic aorta. No mediastinal hematoma i s present. The heart is mildly enlarged and there is moderate coronary artery calcification. No pneum othorax or pleural effusion is present. No pulmonary contusion is present. Subpleural opacities favor atelectasis. A few calcified granulomas are present. No acute rib or thoracic spine fracture is pres ent. Abdomen and pelvis CT will be reported separately. IMPRESSION: No acute traumatic findings within the chest. ACT 112: Negative or not required by law. Electronically signed by: Ernie Diaz M.D. 12/07/2024 12:51 PM
[2024-12-07 12:59] LABS: Adenovirus PCR Not Detected (NotDetected); Bordetella parapertussis PCR Not Detected (NotDetected); Bordetella pertussis PCR Not Detected (NotDetected); Chlamydia pneumoniae PCR Not Detected (NotDetected); Coronavirus 229E PCR Not Detected (NotDetected); Coronavirus CoV-2 (COVID19)PCR Not Detected (NotDetected); Coronavirus HKU1 PCR Not Detected (NotDetected); Coronavirus NL63 PCR Not Detected (NotDetected); Coronavirus OC43PCR Not Detected (NotDetected); Human Metapneumovirus PCR Not Detected (NotDetected); Influenza A PCR Not Detected (NotDetected); Influenza B PCR Not Detected (NotDetected); Mycoplasma pneumoniae PCR Not Detected (NotDetected); Parainfluenza Virus 1 PCR Not Detected (NotDetected); Parainfluenza Virus 2 PCR Not Detected (NotDetected); Parainfluenza Virus 3 PCR Not Detected (NotDetected); Parainfluenza Virus 4 PCR Not Detected (NotDetected); Respiratory Syncytial VirusPCR Not Detected (NotDetected); Rhinovirus/Enterovirus PCR Not Detected (NotDetected)
--- NOTE | 2024-12-07 13:02 | CT Scan Report ---
CT OF THE ABDOMEN AND PELVIS WITH CONTRAST CLINICAL HISTORY: Trauma COMPARISON STUDY: None. TECHNIQUE: Following IV administration of 94 mL of Optiray, axial images of the abdomen and pelvis we re obtained from the lung bases to the proximal femurs. Images were reviewed in the axial, sagittal, and coronal planes. IV contrast was administered without complication. Automated exposure control wa s utilized for the study. A dose lowering technique was utilized adhering to the principles of ALARA . FINDINGS: No hemoperitoneum or pneumoperitoneum is present. There is no evidence for traumatic injury to the liver, spleen, adrenal glands, kidneys or pancreas. Several hepatic cysts are present. There are left-sided renal parapelvic cysts. There are calcified granulomas within the spleen. Adrenal glan ds and pancreas are unremarkable. There is no biliary or pancreatic ductal dilatation. There is sigmo id diverticulosis without evidence for acute diverticulitis. Caliber and wall thickness of small and large bowel are normal. No acute lumbar spine, pelvic or hip fractures are identified. IMPRESSION: No acute traumatic findings within the abdomen or pelvis. ACT 112: Negative or not required by law. Electronically signed by: Ernie Diaz M.D. 12/07/2024 12:59 PM
--- NOTE | 2024-12-07 13:25 | History & Physical Report ---
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 Last known well around 10PM last evening. History obtained from and associated chart review. Allergies Allergy/AdvReac Type Severity Reaction Status Date / Time morphine Allergy Unknown severe Unverified 10/31/24 13:35 headache Home Medications Medication Instructions Recorded Confirmed Type clopidogrel 75 mg tablet 75 mg PO QAM 04/05/20 10/31/24 History escitalopram oxalate 10 mg tablet 10 mg PO WK 05/09/22 10/31/24 History riboflavin (vitamin B2) 400 mg 400 mg PO QAM 05/09/22 10/31/24 History tablet metoprolol succinate 25 mg 25 mg PO QAM 10/31/24 10/31/24 History tablet,extended release 24 hr omeprazole 40 mg capsule,delayed 40 mg PO DAILY 10/31/24 10/31/24 History release Past Med/Surg History Problem List (Updated 12/07/24 @ 13:25 by Jeniffer Menjivar PA-C) Unwitnessed fall Foot cramps (Acute) Medical History GERD (gastroesophageal reflux disease) On clopidogrel therapy H/O ischemic left MCA stroke Family History Other Family history non-contributory Social History Smoking Status: Never smoker Preferred Language: Macedonian Feels Safe at Home: Yes Results & Data Results & Data Vital Signs (Past 12 Hours) Vital Signs Temp Pulse Resp BP Pulse Ox O2 Del Method 12/07/24 12:26 87 12/07/24 11:47 37.5 C 92 H 16 156/82 H 97 Room Air Laboratory Results Short CBC 12/07/24 Range/Units 11:54 WBC 6.94 (4.8-10.8) K/ul Hgb 12.8 (12.0-16.0) g/dl Hct 38.7 (37.0-47.0) % Plt Count 125 L (130-400) K/uL BMP 12/07/24 11:54 Sodium 140 Potassium 3.5 Chloride 102 Carbon Dioxide 32 BUN 15 Creatinine 0.83 Glucose 96 Calcium 9.7 Cardiac Enzymes 12/07/24 Range/Units 11:54 Total Creatine Kinase 247 H (26-192) U/L Liver Function 12/07/24 Range/Units 11:54 Total Bilirubin 1.0 (0.2-1.0) mg/dl AST 23 (13-39) U/L ALT 10 (7-52) U/L Alkaline Phosphatase 61 (34-104) U/L Albumin 4.5 (3.4-5.0) gm/dl Diagnostic Findings Abdomen/Pelvis CT 12/07/24 11:48 CT OF THE ABDOMEN AND PELVIS WITH CONTRAST CLINICAL HISTORY: Trauma COMPARISON STUDY: None. TECHNIQUE: Following IV administration of 94 mL of Optiray, axial images of the abdomen and pelvis were obtained from the lung bases to the proximal femurs. Images were reviewed in the axial, sagittal, and coronal planes. IV contrast was administered without complication. Automated exposure control was utilized for the study. A dose lowering technique was utilized adhering to the principles of ALARA. FINDINGS: No hemoperitoneum or pneumoperitoneum is present. There is no evidence for traumatic injury to the liver, spleen, adrenal glands, kidneys or pancreas. Several hepatic cysts are present. There are left-sided renal parapelvic cysts. There are calcified granulomas within the spleen. Adrenal glands and pancreas are unremarkable. There is no biliary or pancreatic ductal dilatation. There is sigmoid diverticulosis without evidence for acute diverticulitis. Caliber and wall thickness of small and large bowel are normal. No acute lumbar spine, pelvic or hip fractures are identified. IMPRESSION: No acute traumatic findings within the abdomen or pelvis. ACT 112: Negative or not required by law. Electronically signed by: Ernie Diaz M.D. 12/07/2024 12:[address] 12/07/24 11:48 CT OF THE CHEST WITH IV CONTRAST CLINICAL HISTORY: Trauma COMPARISON STUDY: Chest radiograph performed earlier today. Chest radiograph October 31, 2024. TECHNIQUE: Following IV administration of 94 mL of Optiray, helical axial images of the chest were obtained. Sagittal and coronal reconstructions were viewed as well as maximal intensity projections on an independent 3-D workstation. Automated exposure control was utilized for the study. A dose lowering technique was utilized adhering to the principles of ALARA. FINDINGS: There is no evidence for traumatic injury to the thoracic aorta. No mediastinal hematoma is present. The heart is mildly enlarged and there is moderate coronary artery calcification. No pneumothorax or pleural effusion is present. No pulmonary contusion is present. Subpleural opacities favor atelectasis. A few calcified granulomas are present. No acute rib or thoracic spine fracture is present. Abdomen and pelvis CT will be reported separately. IMPRESSION: No acute traumatic findings within the chest. ACT 112: Negative or not required by law. Electronically signed by: Ernie Diaz M.D. 12/07/2024 12:51 PM Chest X-Ray 12/07/24 11:48 XR chest 1V portable CLINICAL HISTORY: Trauma COMPARISON STUDY: Chest radiograph October 31, 2014. FINDINGS: Lung volumes are normal. Lungs are clear. There is no pneumothorax or pleural effusion. Cardiac size is normal. Mediastinal contours are normal. There is no evidence for pulmonary edema. IMPRESSION: No acute cardiopulmonary findings. ACT 112: Negative or not required by law. Electronically signed by: Ernie Diaz M.D. 12/07/2024 12:[address] 12/07/24 11:49 CT OF THE CERVICAL SPINE WITHOUT CONTRAST CLINICAL HISTORY: Trauma COMPARISON STUDY: Cervical spine CT October 31, 2024. TECHNIQUE: Helical axial images of the cervical spine were obtained without IV contrast. Sagittal and coronal reconstructions were viewed. Automated exposure control was utilized for the study. A dose lowering technique was utilized adhering to the principles of ALARA. FINDINGS: Moderate multilevel disc space narrowing and facet arthrosis within the cervical spine is present. Vertebral body heights are maintained. No acute cervical spine fracture or subluxation is present. There is no prevertebral addie ma. Facet joints are intact. IMPRESSION: No acute cervical spine fracture or subluxation. ACT 112: Negative or not required by law. Electronically signed by: Ernie Diaz M.D. 12/07/2024 12:[address] 12/07/24 11:49 CT OF THE HEAD WITHOUT CONTRAST CLINICAL HISTORY: Trauma COMPARISON STUDY: Head CT October 31, 2024. TECHNIQUE: Helical axial images of the head were obtained without IV contrast. Automated exposure control was utilized for the study. A dose lowering technique was utilized adhering to the principles of ALARA. FINDINGS: No acute intracranial hemorrhage, midline shift or mass effect is present. The ventricular system is stable. Left frontotemporal encephalomalacia is unchanged and favors an old infarct. The basal cisterns are patent. No extra- axial collections are present. There are no findings to suggest acute dural sinus thrombosis or acute territorial infarct. No significant calvarial abnormalities are present. Visualized portions of the sinuses and mastoid air cells are clear. Stable findings following left mastoidectomy. IMPRESSION: 1. No acute intracranial findings. No change in appearance of the brain. 2. No calvarial fractures. ACT 112: Negative or not required by law. Electronically signed by: Ernie Diaz M.D. 12/07/2024 12:25 PM Medications Administered Discontinued Medications Sodium Chloride (Nss) 1,000 mls @ 999 mls/hr IV .Q1H1M LORE Stop: 12/07/24 13:00 Last Admin: 12/07/24 12:18 Dose: 999 mls/hr Documented By: QUETA Ioversol (Optiray 320 100ml) 94 ml IV ONCE ONE Stop: 12/07/24 12:29 Last Admin: 12/07/24 12:28 Dose: 94 ml Documented By: SHANON
[2024-12-07] MEDS ORDERED: POLYETHYLENE (MIRALAX) 17 GM PACK PO PRN (16:53)
--- NOTE | 2024-12-07 19:30 | History & Physical Report ---
Date of Service December 07, 2024 Assessment & Plan (1) Unwitnessed fall: Plan: -unclear etiology -extensive imaging without acute findings -ECG showing potential flutter waves, however appears sinus -unclear etiology, differential includes mechanical fall, multifactorial, arrythmia, UTI, less likely infarct (no localization on exam), structrual cardiac, hypovlemia, orthostatic, seizures Plan: -telemetry monitoring -maitenance fluids ordered -delirium precautions -check echo -hold metoprolol given unclear etiology -check orthostats (2) Acute metabolic encephalopathy: Plan: -likely multifactorial, including delirium, possible syncope, dementia, UTI? Plan: -check urinalysis -check B12, start folic acid, thiamine supp -delirium precautions -PT/OT, will need placement with view to fdc care -3mg melatonin at bedtime for sleep wake cycle -avoid anticholinergics (3) GERD (gastroesophageal reflux disease): Plan: -continue omeprazole (4) H/O ischemic left MCA stroke: Plan: -continue plavix, aspirin (5) Hypophosphatemia: Plan: -replenish (6) Dementia: Plan: -appears moderate to severe, now c/b hallucinations and agitation Plan: -needs placement -f/u with geriatrics outpatient Plan Feeding/fluids: regular Analgesia: tylenol Sedation: na Thromboprophylaxis: SCD given platlets Head up position: na Ulcer prophylaxis: omeprazole Glycemic control: na Spontaneous breathing trial: na Bowel care: miralax prn Indwelling catheter removal: na Deescalation of antibiotics: na I spent a total of 80 minutes in direct patient care, including [id number] time with the patient and/or family, reviewing medical records, ordering and reviewing diagnostic tests, and coordinating care with other healthcare providers. This time includes: history taking, physical examination, medical decision making, counseling, ECG interpretation, imaging interpretation, lab interpretation, orders, and education, excluding time spent in the performance of separately billed services. Admission and Anticipated Discharge Date Admission Date: December 07, 2024 History of Present Illness Primary Care Provider: Melecio Nye MD 84-year-old female with past medical history of CVA with residual deficits, hyperlipidemia, dysphagia, history of osteoporosis, depression who presents for being found down at home. Last known normal was 10 PM last night. 8 or 9 this morning was found down. In the ED extensive imaging were unremarkable, patient was clearly out of it, admitted to medicine for further workup. Patient seen and examined at bedside., He might family by family at bedside as well. They state that they have been trying to get her to go to assisted living for several weeks to months. But that does not happen. Daughter is taking care of patient almost every day. On a good day she takes her medicine maybe changes her close, but does not do most of her ADLs. However this is different. Her current state is much different than normal. They cannot think of anything out of the ordinary that occurred. States she has been having hallucinations and agitation. Allergies Allergy/AdvReac Type Severity Reaction Status Date / Time morphine Allergy Unknown severe Unverified 10/31/24 13:35 headache Home Medications Medication Instructions Recorded Confirmed Type clopidogrel 75 mg tablet 75 mg PO QAM 04/05/20 12/07/24 History escitalopram oxalate 10 mg tablet 10 mg PO UD 05/09/22 12/07/24 History riboflavin (vitamin B2) 400 mg 400 mg PO QAM 05/09/22 12/07/24 History tablet metoprolol succinate 25 mg 25 mg PO QAM 10/31/24 12/07/24 History tablet,extended release 24 hr omeprazole 40 mg capsule,delayed 40 mg PO DAILY 10/31/24 12/07/24 History release Past Med/Surg History Problem List (Updated 12/07/24 @ 19:39 by Meir Pratt MD) Dementia Hypophosphatemia Acute metabolic encephalopathy Unwitnessed fall Foot cramps (Acute) Medical History GERD (gastroesophageal reflux disease) On clopidogrel therapy H/O ischemic left MCA stroke Family History Other Family history non-contributory Social History Smoking Status: Never smoker Hx Alcohol Use: No Hx Substance Use: No Preferred Language: Macedonian 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 External ears normal. No rhinorrhea. Dry mucuous membranes Neck: Supple, full range of motion, no observable masses, No meningeal sign. Lungs: No Respiratory distress. CV: RRR, no edema. Abdomen: Soft, nondistended, No rebound tenderness. MSK: No joint swelling, no redness. Skin: No rashes, petechiae, lesions. Normal color per patient. Noted abrasions Neuro: unable to perform, noted twitching on exam Results & Data Results & Data Vital Signs (Past 12 Hours) Vital Signs Temp Pulse Pulse Pulse Resp BP BP 12/07/24 16:36 67 12/07/24 16:11 12/07/24 16:11 37.0 C 71 17 154/84 H 12/07/24 15:46 37.0 C 71 17 154/84 H 12/07/24 14:40 75 18 146/90 H 12/07/24 14:00 79 18 142/76 H 12/07/24 13:47 12/07/24 12:26 87 12/07/24 11:47 37.5 C 92 H 16 156/82 H Pulse Ox Pulse Ox O2 Del Method O2 Del Method 12/07/24 16:36 12/07/24 16:11 94 Room Air 12/07/24 16:11 94 Room Air 12/07/24 15:46 94 Room Air 12/07/24 14:40 95 Room Air 12/07/24 14:00 93 Room Air 12/07/24 13:47 93 Room Air 12/07/24 12:26 12/07/24 11:47 97 Room Air Laboratory Results -personally reviewed, low phosphate noted, hemodyanmically stable at this time Diagnostic Findings Abdomen/Pelvis CT 12/07/24 11:48 CT OF THE ABDOMEN AND PELVIS WITH CONTRAST CLINICAL HISTORY: Trauma COMPARISON STUDY: None. TECHNIQUE: Following IV administration of 94 mL of Optiray, axial images of the abdomen and pelvis were obtained from the lung bases to the proximal femurs. Images were reviewed in the axial, sagittal, and coronal planes. IV contrast was administered without complication. Automated exposure control was utilized for the study. A dose lowering technique was utilized adhering to the principles of ALARA. FINDINGS: No hemoperitoneum or pneumoperitoneum is present. There is no evidence for traumatic injury to the liver, spleen, adrenal glands, kidneys or pancreas. Several hepatic cysts are present. There are left-sided renal parapelvic cysts. There are calcified granulomas within the spleen. Adrenal glands and pancreas are unremarkable. There is no biliary or pancreatic ductal dilatation. There is sigmoid diverticulosis without evidence for acute diverticulitis. Caliber and wall thickness of small and large bowel are normal. No acute lumbar spine, pelvic or hip fractures are identified. IMPRESSION: No acute traumatic findings within the abdomen or pelvis. ACT 112: Negative or not required by law. Electronically signed by: Ernie Diaz M.D. 12/07/2024 12:[address] 12/07/24 11:48 CT OF THE CHEST WITH IV CONTRAST CLINICAL HISTORY: Trauma COMPARISON STUDY: Chest radiograph performed earlier today. Chest radiograph October 31, 2024. TECHNIQUE: Following IV administration of 94 mL of Optiray, helical axial images of the chest were obtained. Sagittal and coronal reconstructions were viewed as well as maximal intensity projections on an independent 3-D workstation. Automated exposure control was utilized for the study. A dose lowering technique was utilized adhering to the principles of ALARA. FINDINGS: There is no evidence for traumatic injury to the thoracic aorta. No mediastinal hematoma is present. The heart is mildly enlarged and there is moderate coronary artery calcification. No pneumothorax or pleural effusion is present. No pulmonary contusion is present. Subpleural opacities favor atelectasis. A few calcified granulomas are present. No acute rib or thoracic spine fracture is present. Abdomen and pelvis CT will be reported separately. IMPRESSION: No acute traumatic findings within the chest. ACT 112: Negative or not required by law. Electronically signed by: Ernie Diaz M.D. 12/07/2024 12:51 PM Chest X-Ray 12/07/24 11:48 XR chest 1V portable CLINICAL HISTORY: Trauma COMPARISON STUDY: Chest radiograph October 31, 2014. FINDINGS: Lung volumes are normal. Lungs are clear. There is no pneumothorax or pleural effusion. Cardiac size is normal. Mediastinal contours are normal. There is no evidence for pulmonary edema. IMPRESSION: No acute cardiopulmonary findings. ACT 112: Negative or not required by law. Electronically signed by: Ernie Diaz M.D. 12/07/2024 12:[address] 12/07/24 11:49 CT OF THE CERVICAL SPINE WITHOUT CONTRAST CLINICAL HISTORY: Trauma COMPARISON STUDY: Cervical spine CT October 31, 2024. TECHNIQUE: Helical axial images of the cervical spine were obtained without IV contrast. Sagittal and coronal reconstructions were viewed. Automated exposure control was utilized for the study. A dose lowering technique was utilized adhering to the principles of ALARA. FINDINGS: Moderate multilevel disc space narrowing and facet arthrosis within the cervical spine is present. Vertebral body heights are maintained. No acute cervical spine fracture or subluxation is present. There is no prevertebral edema. Facet joints are intact. IMPRESSION: No acute cervical spine fracture or subluxation. ACT 112: Negative or not required by law. Electronically signed by: Ernie Diaz M.D. 12/07/2024 12:[address] 12/07/24 11:49 CT OF THE HEAD WITHOUT CONTRAST CLINICAL HISTORY: Trauma COMPARISON STUDY: Head CT October 31, 2024. TECHNIQUE: Helical axial images of the head were obtained without IV contrast. Automated exposure control was utilized for the study. A dose lowering technique was utilized adhering to the principles of ALARA. FINDINGS: No acute intracranial hemorrhage, midline shift or mass effect is present. The ventricular system is stable. Left frontotemporal encephalomalacia is unchanged and favors an old infarct. The basal cisterns are patent. No extra- axial collections are present. There are no findings to suggest acute dural sinus thrombosis or acute territorial infarct. No significant calvarial abnormalities are present. Visualized portions of the sinuses and mastoid air cells are clear. Stable findings following left mastoidectomy. IMPRESSION: 1. No acute intracranial findings. No change in appearance of the brain. 2. No calvarial fractures. ACT 112: Negative or not required by law. Electronically signed by: Ernie Diaz M.D. 12/07/2024 12:25 PM (3) GERD (gastroesophageal reflux disease) Esophagitis presence: without esophagitis Qualified Code(s): K21.9 - Gastro- esophageal reflux disease without esophagitis (6) Dementia Dementia type: unspecified type Dementia severity: moderate Dementia behavioral or psychological symptom: with psychotic disturbance Qualified Code(s): F03.B2 - Unspecified dementia, moderate, with psychotic disturbance
[2024-12-07] MEDS: THIAMINE HCL 100 MG TAB PO SCH (20:18)
[2024-12-07] MEDS: FOLIC ACID 1 MG TAB PO SCH (20:18)
[2024-12-07] MEDS: POTASSIUM PHOSPHATE 15 MMOL in SODIUM CHLORIDE 0.9% 250 ML IV ONE (20:18)
[2024-12-07] MEDS: MELATONIN 3 MG TAB PO SCH (20:18)
[2024-12-07] MEDS: D5W AND LACTATED RINGERS 1,000 ML IV SCH (20:18)
[2024-12-07] MEDS: POTASSIUM PHOS 3 MMOL/1 ML INFUSION IV STA (22:39)
[2024-12-08 06:16] LABS: Hematocrit (blood only) 31.6 % (37.0-47.0); Hemoglobin 10.6 g/dl (12.0-16.0); Mean Corpuscular Hgb Conc 33.5 g/dL (32.0-36.0); Mean Corpuscular Volume 92.4 fL (80.0-100.0); Mean Platelet Volume 11.3 fL (9.4-12.4); Platelet Count 103 K/uL (130-400); RDW Coefficient of Variation 12.8 % (11.5-14.5); RDW Standard Deviation 43.4 fL (36.4-46.3); Red Blood Count 3.42 M/uL (4.20-5.40); White Blood Count 5.44 K/ul (4.8-10.8)
[2024-12-08 06:43] LABS: BUN Creatinine Ratio 15.9 (10-20); Calcium 8.7 mg/dl (8.6-10.3); Creatinine Clr Calc Pharmacy 49.1 ml/min; Potassium 3.4 mmol/L (3.5-5.1)
[2024-12-08] MEDS: CLOPIDOGREL BISULFATE 75 MG TAB PO SCH (08:57)
[2024-12-08] MEDS: POTASSIUM CHLORIDE CRTAB 20 MEQ TABCR PO STA (08:57)
[2024-12-08] MEDS: PANTOprazole 40 MG TAB PO SCH (08:57)
[2024-12-08] MEDS: ESCITALOPRAM OXALATE 10 MG TAB PO SCH (08:57)
[2024-12-08] MEDS ORDERED: METOPROLOL SUCC 25MG EXT REL TAB PO SCH (09:00)
--- NOTE | 2024-12-08 12:27 | Hospitalist Progress Note ---
Date of Service December 08, 2024 Assessment & Plan (1) Unwitnessed fall: Plan: -unclear etiology -extensive imaging without acute findings -ECG showing potential flutter waves, however appears sinus -unclear etiology, differential includes mechanical fall, multifactorial, arrythmia, UTI, less likely infarct (no localization on exam), structrual cardiac, hypovlemia, orthostatic, seizures -improved today Plan: -telemetry monitoring -maitenance fluids ordered -delirium precautions -check echo -check orthostats (2) Acute metabolic encephalopathy: Plan: -likely multifactorial, including delirium, possible syncope, dementia, UTI? Plan: -check urinalysis -continue folic acid, thiamine supp -delirium precautions -PT/OT, will need placement with view to detention care -3mg melatonin at bedtime for sleep wake cycle -avoid anticholinergics (3) GERD (gastroesophageal reflux disease): Plan: -continue omeprazole (4) H/O ischemic left MCA stroke: Plan: -continue plavix, aspirin (5) Hypophosphatemia: Plan: -replenish (6) Dementia: Plan: -appears moderate to severe, now c/b hallucinations and agitation Plan: -needs placement -f/u with geriatrics outpatient Plan Feeding/fluids: regular Analgesia: tylenol Sedation: na Thromboprophylaxis: SCD given platlets Head up position: na Ulcer prophylaxis: omeprazole Glycemic control: na Spontaneous breathing trial: na Bowel care: miralax prn Indwelling catheter removal: na Deescalation of antibiotics: na I spent a total of 40 minutes in direct patient care, including [id number] time with the patient and/or family, reviewing medical records, ordering and reviewing diagnostic tests, and coordinating care with other healthcare providers. This time includes: history taking, physical examination, medical decision making, counseling, ECG interpretation, imaging interpretation, lab interpretation, orders, and education, excluding time spent in the performance of separately billed services. Admission and Anticipated Discharge Date Admission Date: December 07, 2024 Subjective Patient seen and examined at bedside. Patient appears much improved today. Updated daughter and improvement, he was appreciative for the update. Patient appears to be relatively close to her baseline. Review of Systems Review of Systems: -unable to endorse ROS due to chronic st atus Physical Exam Physical Exam: Gen: A&O 2 NAD HEENT: NCAT, EOMI, not icteric. External ears normal. No rhinorrhea. moist mucuous membranes Neck: Supple, full range of motion, no observable masses, No meningeal sign. Lungs: No Respiratory distress. CV: RRR, no edema. Abdomen: Soft, nondistended, No rebound tenderness. MSK: No joint swelling, no redness. Skin: No rashes, petechiae, lesions. Normal color per patient. Noted abrasions Neuro: unable to perform, noted twitching on exam Results & Data Results & Data Vital Signs (Past 12 Hours) Vital Signs Temp Pulse Pulse Resp BP Pulse Ox O2 Del Method 12/08/24 11:34 61 12/08/24 11:17 36.6 C 75 16 116/68 97 Room Air 12/08/24 10:51 Room Air 12/08/24 07:47 36.3 C L 70 16 146/73 H 95 Room Air 12/08/24 02:46 36.6 C 78 18 145/70 H 96 Room Air Laboratory Results -personally reviewed, low phos, low K Medications Administered Clopidogrel Bisulfate (Clopidogrel Bisulfate 75 Mg Tab) 75 mg PO QAM [facility] Stop: 01/07/25 08:59 Last Admin: 12/08/24 08:57 Dose: 75 mg Documented By: SOTO Escitalopram Oxalate (Escitalopram Oxalate 10 Mg Tab) 10 mg PO DAILY LORE Stop: 01/07/25 08:59 Last Admin: 12/08/24 08:57 Dose: 10 mg Documented By: SOTO Folic Acid (Folic Acid 1 Mg Tab) 1 mg PO QAM LORE Stop: 01/06/25 19:44 Last Admin: 12/08/24 08:57 Dose: 1 mg Documented By: Admin: 12/07/24 20:18 Dose: 1 mg Documented By: CORA Dextrose/Lactated Ringer's (D5w And Lactated Ringers) 1,000 mls @ 80 mls/hr IV .[id number] LORE Stop: 12/08/24 19:29 Last Admin: 12/08/24 08:55 Dose: 80 mls/hr Documented By: Infusion: 12/08/24 08:48 Dose: Infused Documented By: Admin: 12/07/24 20:18 Dose: 80 mls/hr Documented By: CORA Melatonin (Melatonin 3 Mg Tab) 3 mg PO HS LORE Stop: 01/06/25 20:59 Last Admin: 12/07/24 20:18 Dose: 3 mg Documented By: TLM Pantoprazole Sodium (Pantoprazole 40 Mg Tab) 40 mg PO DAILY LORE Stop: 01/07/25 08:59 Last Admin: 12/08/24 08:57 Dose: 40 mg Documented By: AMS Thiamine HCl (Thiamine Hcl 100 Mg Tab) 100 mg PO QAM LORE Stop: 01/06/25 19:44 Last Admin: 12/08/24 08:57 Dose: 100 mg Documented By: Admin: 12/07/24 20:18 Dose: 100 mg Documented By: TLM (3) GERD (gastroesophageal reflux disease) Esophagitis presence: without esophagitis Qualified Code(s): K21.9 - Gastro- esophageal reflux disease without esophagitis (6) Dementia Dementia type: unspecified type Dementia severity: unspecified severity Dementia behavioral or psychological symptom: unspecified whether behavioral, psychotic, or mood disturbance or anxiety Qualified Code(s): F03.90 - Unspecified dementia, unspecified severity, without behavioral disturbance, psychotic disturbance, mood disturbance, and anxiety
--- NOTE | 2024-12-08 12:55 | Electrocardiogram Report ---
Test Reason : Blood Pressure : */* mmHG Vent. Rate : 84 BPM Atrial Rate : 84 BPM P-R Int : 110 ms QRS Dur : 80 ms QT Int : 322 ms P-R-T Axes : 86 33 -28 degrees QTcB Int : 380 ms Sinus rhythm Nonspecific ST and T wave abnormality Abnormal ECG Confirmed by Anthony Grewal ([id number]) on 12/08/2024 12:55:12 PM Referred By: REFERRED SELF Confirmed By: Anthony Grewal
[2024-12-09 06:28] LABS: Hematocrit (blood only) 32.1 % (37.0-47.0); Hemoglobin 10.8 g/dl (12.0-16.0); Mean Corpuscular Hemoglobin 30.8 pg (25.0-34.0); Mean Corpuscular Hgb Conc 33.6 g/dL (32.0-36.0); Mean Corpuscular Volume 91.5 fL (80.0-100.0); Mean Platelet Volume 11.5 fL (9.4-12.4); Platelet Count 101 K/uL (130-400); RDW Coefficient of Variation 12.7 % (11.5-14.5); Red Blood Count 3.51 M/uL (4.20-5.40); White Blood Count 4.52 K/ul (4.8-10.8)
[2024-12-09 06:43] LABS: BUN Creatinine Ratio 12.9 (10-20); Calcium 9.1 mg/dl (8.6-10.3); Potassium 3.5 mmol/L (3.5-5.1)
--- NOTE | 2024-12-09 10:39 | Hospitalist Progress Note ---
Date of Service December 09, 2024 Assessment & Plan (1) Unwitnessed fall: Plan: -unclear etiology -extensive imaging without acute findings -ECG showing potential flutter waves, however appears sinus -unclear etiology, differential includes mechanical fall, multifactorial, arrythmia, UTI, less likely infarct (no localization on exam), structrual cardiac, hypovlemia, orthostatic, seizures -improved today, at baseline Plan: -telemetry monitoring -maitenance fluids ordered -delirium precautions -awaiting placement (2) Acute metabolic encephalopathy: Plan: -likely multifactorial, including delirium, possible syncope, dementia, UTI? Plan: -check urinalysis -continue folic acid, thiamine supp -delirium precautions -PT/OT, will need placement with view to [facility] care -3mg melatonin at bedtime for sleep wake cycle -avoid anticholinergics (3) GERD (gastroesophageal reflux disease): Plan: -continue omeprazole (4) H/O ischemic left MCA stroke: Plan: -continue plavix, aspirin (5) Hypophosphatemia: Plan: -replenish (6) Dementia: Plan: -appears moderate to severe, now c/b hallucinations and agitation Plan: -needs placement -f/u with geriatrics outpatient Plan Feeding/fluids: regular Analgesia: tylenol Sedation: na Thromboprophylaxis: SCD given platlets Head up position: na Ulcer prophylaxis: omeprazole Glycemic control: na Spontaneous breathing trial: na Bowel care: miralax prn Indwelling catheter removal: na Deescalation of antibiotics: na I spent a total of 40 minutes in direct patient care, including [id number] time with the patient and/or family, reviewing medical records, ordering and reviewing diagnostic tests, and coordinating care with other healthcare providers. This time includes: history taking, physical examination, medical decision making, counseling, ECG interpretation, imaging interpretation, lab interpretation, orders, and education, excluding time spent in the performance of separately billed services. Admission and Anticipated Discharge Date Admission Date: December 07, 2024 Subjective Patient seen and examined at bedside. Ms. Euceda is doing better today, she would like to go home. Review of Systems Review of Systems: CONSTITUTIONAL: Patient denies fevers, chills, sweats and weight changes. EYES: Patient denies any visual symptoms. EARS, NOSE, AND THROAT: No difficulties with hearing. No symptoms of rhinitis or sore throat. CARDIOVASCULAR: Patient denies chest pains, palpitations, orthopnea and paroxysmal nocturnal dyspnea. RESPIRATORY: No dyspnea on exertion, no wheezing or cough. GI: No nausea, vomiting, diarrhea, constipation, abdominal pain, hematochezia or melena. : No urinary hesitancy or dribbling. No nocturia or urinary frequency. No abnormal urethral discharge. MUSCULOSKELETAL: No myalgias or arthralgias. NEUROLOGIC: No chronic headaches, no seizures. Patient denies numbness, tingling or weakness. PSYCHIATRIC: Patient denies problems with mood disturbance. No problems with anxiety. ENDOCRINE: No excessive urination or excessive thirst. DERMATOLOGIC: Patient denies any rashes or skin changes. Physical Exam Physical Exam: Gen: A&O 2 NAD HEENT: NCAT, EOMI, not icteric. External ears normal. No rhinorrhea. moist mucuous membranes Neck: Supple, full range of motion, no observable masses, No meningeal sign. Lungs: No Respiratory distress. CV: RRR, no edema. Abdomen: Soft, nondistended, No rebound tenderness. MSK: No joint swelling, no redness. Skin: No rashes, petechiae, lesions. Normal color per patient. Noted abrasions Neuro: unable to perform, noted twitching on exam Results & Data Results & Data Vital Signs (Past 12 Hours) Vital Signs Temp Pulse Pulse Resp BP Pulse Ox O2 Del Method 12/09/24 09:28 Room Air 12/09/24 07:20 36.3 C L 83 18 158/82 H 95 Room Air 12/09/24 06:44 70 12/09/24 03:27 36.2 C L 82 18 145/77 H 96 Room Air Laboratory Results -personally reviewed, creatinine is 0.62 and stable at this time Medications Administered Clopidogrel Bisulfate (Clopidogrel Bisulfate 75 Mg Tab) 75 mg PO QAM [facility] Stop: 01/07/25 08:59 Last Admin: 12/09/24 08:38 Dose: 75 mg Documented By: Admin: 12/08/24 08:57 Dose: 75 mg Documented By: SOTO Escitalopram Oxalate (Escitalopram Oxalate 10 Mg Tab) 10 mg PO DAILY [facility] Stop: 01/07/25 08:59 Last Admin: 12/09/24 08:38 Dose: 10 mg Documented By: Admin: 12/08/24 08:57 Dose: 10 mg Documented By: SOTO Folic Acid (Folic Acid 1 Mg Tab) 1 mg PO QAM [facility] Stop: 01/06/25 19:44 Last Admin: 12/09/24 08:38 Dose: 1 mg Documented By: Admin: 12/08/24 08:57 Dose: 1 mg Documented By: Admin: 12/07/24 20:18 Dose: 1 mg Documented By: TLM Melatonin (Melatonin 3 Mg Tab) 3 mg PO HS [facility] Stop: 01/06/25 20:59 Last Admin: 12/08/24 20:01 Dose: 3 mg Documented By: Admin: 12/07/24 20:18 Dose: 3 mg Documented By: TLM Pantoprazole Sodium (Pantoprazole 40 Mg Tab) 40 mg PO DAILY [facility] Stop: 01/07/25 08:59 Last Admin: 12/09/24 08:38 Dose: 40 mg Documented By: Admin: 12/08/24 08:57 Dose: 40 mg Documented By: SOTO Thiamine HCl (Thiamine Hcl 100 Mg Tab) 100 mg PO QA [facility] Stop: 01/06/25 19:44 Last Admin: 12/09/24 08:38 Dose: 100 mg Documented By: Admin: 12/08/24 08:57 Dose: 100 mg Documented By: Admin: 12/07/24 20:18 Dose: 100 mg Documented By: TLM (3) GERD (gastroesophageal reflux disease) Esophagitis presence: without esophagitis Qualified Code(s): K21.9 - Gastro- esophageal reflux disease without esophagitis (6) Dementia Dementia type: unspecified type Dementia severity: unspecified severity Dementia behavioral or psychological symptom: unspecified whether behavioral, ps ychotic, or mood disturbance or anxiety Qualified Code(s): F03.90 - Unspecified dementia, unspecified severity, without behavioral disturbance, psychotic disturbance, mood disturbance, and anxiety
[2024-12-09] MEDS: ACETAMINOPHEN 325 MG TAB PO PRN (12:46)
[2024-12-09] MEDS: D5W AND LACTATED RINGERS 1,000 ML IV SCH (13:37)
[2024-12-10 06:47] LABS: Hemoglobin 12.6 g/dl (12.0-16.0); Mean Corpuscular Hemoglobin 31.2 pg (25.0-34.0); Mean Corpuscular Hgb Conc 34.1 g/dL (32.0-36.0); Mean Corpuscular Volume 91.6 fL (80.0-100.0); Mean Platelet Volume 11.4 fL (9.4-12.4); Platelet Count 134 K/uL (130-400); RDW Coefficient of Variation 12.5 % (11.5-14.5); RDW Standard Deviation 41.8 fL (36.4-46.3); Red Blood Count 4.04 M/uL (4.20-5.40); White Blood Count 5.64 K/ul (4.8-10.8)
[2024-12-10 07:07] LABS: BUN Creatinine Ratio 10.5 (10-20); Calcium 9.6 mg/dl (8.6-10.3); Creatinine Clr Calc Pharmacy 45.4 ml/min; Potassium 3.7 mmol/L (3.5-5.1)
[2024-12-10] MEDS: METOPROLOL SUCC 25MG EXT REL TAB PO SCH (08:45)
[2024-12-10] MEDS: HEPARIN SOD 5,000 UNIT/0.5 ML VIAL SQ SCH (09:19)
--- NOTE | 2024-12-10 14:04 | Discharge Summary ---
Date of Service December 10, 2024 Admission HPI Per Admitting Provider 84-year-old female with past medical history of CVA with residual deficits, hyperlipidemia, dysphagia, history of osteoporosis, depression who presents for being found down at home. Last known normal was 10 PM last night. 8 or 9 this morning was found down. In the ED extensive imaging were unremarkable, patient was clearly out of it, admitted to medicine for further workup. Patient seen and examined at bedside., He might family by family at bedside as well. They state that they have been trying to get her to go to assisted living for several weeks to months. But that does not happen. Daughter is taking care of patient almost every day. On a good day she takes her medicine maybe changes her close, but does not do most of her ADLs. However this is different. Her current state is much different than normal. They cannot think of anything out of the ordinary that occurred. States she has been having hallucinations and agitation. Admission Exam Per Admitting Provider Gen: A&O 1 NAD HEENT: NCAT, EOMI, not icteric. External ears normal. No rhinorrhea. Dry mucuous membranes Neck: Supple, full range of motion, no observable masses, No meningeal sign. Lungs: No Respiratory distress. CV: RRR, no edema. Abdomen: Soft, nondistended, No rebound tenderness. MSK: No joint swelling, no redness. Skin: No rashes, petechiae, lesions. Normal color per patient. Noted abrasions Neuro: unable to perform, noted twitching on exam Principal Diagnosis Unwitnessed fall Acute metabolic encephalopathy Discharge Exam Gen: NAD, on RA, sleeping, woke up for exam. HEENT: NCAT, EOMI, not icteric. External ears normal. No rhinorrhea. moist mucous membranes Neck: Supple, full range of motion, no observable masses, No meningeal sign. Lungs: No Respiratory distress. CV: RRR, no edema. Abdomen: Soft, nondistended, No rebound tenderness. MSK: No joint swelling, no redness. Skin: No rashes, petechiae, lesions. Normal color per patient. Noted abrasions Neuro: unable to perform, noted twitching on exam Discharge Data Allergies Allergy/AdvReac Type Severity Reaction Status Date / Time morphine Allergy Unknown severe Unverified 10/31/24 13:35 headache Consultations 12/07/24 13:14 ED Decision to Admit Stat Ordered Studies 12/07/24 11:48 CT abd pelvis IV con only Stat CT chest diagnostic w con Stat 12/07/24 11:49 CT cervical spine wo con Stat CT head/brain wo con Stat Hospital Course (1) Generalized weakness: Plan Per prior attending with addendum: (1) Unwitnessed fall: Plan: -unclear etiology -extensive imaging without acute findings -ECG showing potential flutter waves, however appears sinus -unclear etiology, differential includes mechanical fall, multifactorial, arrythmia, UTI, less likely infarct (no localization on exam), structrual cardiac, hypovlemia, orthostatic, seizures -improved today Plan: -telemetry monitoring -maitenance fluids ordered -delirium precautions -check echo -check orthostats (2) Acute metabolic encephalopathy: Plan: -likely multifactorial, including delirium, possible syncope, dementia, UTI? 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 exterminator care -3mg melatonin at bedtime for sleep wake cycle -avoid anticholinergics (3) GERD (gastroesophageal reflux disease): Plan: -continue omeprazole (4) H/O ischemic left MCA stroke: Plan: -continue plavix, aspirin (5) Hypophosphatemia: Plan: -replenish (6) Dementia: Plan: -appears moderate to severe, now c/b hallucinations and agitation Plan: -needs placement -f/u with geriatrics outpatient Plan Feeding/fluids: regular Analgesia: tylenol Sedation: na Thromboprophylaxis: SCD given platlets Head up position: na Ulcer prophylaxis: omeprazole Glycemic control: na Spontaneous breathing trial: na Bowel care: miralax prn Indwelling catheter removal: na Deescalation of antibiotics: na Addendum 12/10/2024: Patient seen and examined at bedside as a follow-up of unwitnessed fall and acute metabolic encephalopathy. Patient was sleeping, woke up to exam, denies pain. Labs reviewed, no acute changes. Patient appears to be at her baseline. Patient will be discharged to SNF with following instructions at the point of discharge: Home Health Attestation I certify that this patient is under my care and that I, or a physicians freezer assistant working with me, had a face to-face encounter that meets the home health [id number] encounter requirements with this patient. The encounter with the patient was in whole, or in part, for the following medical condition, which is the primary reason for home health care (list medical condition): I certify that, based on my findings, the following services are medically necessary home health services: My clinical findings support the need for the above services because: Further, I certify that my clinical findings support that this patient is homebound (i.e. absences from home require considerable and taxing effort and are for medical reasons or catholic services or infrequently or of short duration when for other reasons) because: Certification for Home Health Services: Based on the above findings, I certify that this patient is confined to the home and needs intermittent shelter care, physical therapy and/or speech therapy or continues to need occupational therapy. The patient is under my care, and I have initiated the establishment of the plan of care. This patient will be followed by a physician who will periodically review the plan of care. Total Time Total Time Spent Total Time Spent (In Minutes): 35 Discharge Plan Discharge Items Patient Disposition: Transfer [facility] Reason For Visit: FALL Discharge Diagnosis: Unwitnessed fall Acute metabolic encephalopathy Activity: As commented below Activity Comment: c/w pt/ot at snf. Non-emergency contact: Primary Care Provider Call non-emergency contact if: you have any medication questions and your symptoms worsen Follow-up/Referrals: Melecio Nye MD [Primary Care Provider] - Diet: Regular Addtl Attending Provider Instructions: Follow-up with your primary care physician within a week time and likely you will need labs CBC/CMP/magnesium/phosphorus. Continue with physical therapy at nursing facility. Avoid anticholinergics. Melatonin at bedtime for her sleep-wake cycle. Take your medications as prescribed. Please make sure that you are able to get your medications today by calling your pharmacy before you leave the hospital so that your treatment continuity is not broken. Pending Studies at Discharge: No Stand-Alone Forms: My [employer] Skilled Items Patient informed of condition?: Yes DNR: No Discharge Level of Care: Skilled Communicable Disease: No Discharge Prognosis: Stable Lines: None Urinary Catheter: No Medications and DC Order Prescriptions: New melatonin 3 mg Tablet 3 mg PO HS Qty: 30 0RF folic acid 1 mg Tablet 1 mg PO QAM Qty: 30 0RF thiamine HCl (vitamin B1) 100 mg Tablet 100 mg PO QAM Qty: 30 0RF Continued clopidogrel 75 mg tablet 75 mg PO QAM Rx Instructions: filled 12/05 90 day supply escitalopram oxalate 10 mg tablet 10 mg PO UD Rx Instructions: original: 10 mg po ; . filled 09/21 90 day supply for #90 riboflavin (vitamin B2) 400 mg Tablet 400 mg PO QAM Rx Instructions: otc unable to verify omeprazole 40 mg Capsule,Delayed Release(Dr/Ec) 40 mg PO DAILY Rx Instructions: filled 11/03 90 day supply metoprolol succinate 25 mg tablet extended release 24 hr 25 mg PO QAM Rx Instructions: filled 09/21 90 day supply Discharge Orders: Discharge Order (Routine); Ordered 12/10/24 Ordered By: Dragan Farias Admission Data Admit Date/Time: 12/07/24 13:45 Attending Provider: Dragan Farias Admit Provider: Meir Pratt Primary Care Provider: Melecio Nye Other Providers: Meir Pratt
--- NOTE | 2024-12-10 15:31 | Hospitalist Progress Note ---
Date of Service December 10, 2024 Assessment & Plan (1) Generalized weakness: Plan (1) Unwitnessed fall: Plan: -unclear etiology -extensive imaging without acute findings -ECG showing potential flutter waves, however appears sinus -unclear etiology, differential includes mechanical fall, multifactorial, arrythmia, UTI, less likely infarct (no localization on exam), structrual cardiac, hypovlemia, orthostatic, seizures -fell again 12/10 Plan: -telemetry monitoring -delirium precautions -echo wnl. -fall 12/10, send ct head, ct c spine and b/l hip xr. continue observation tonight. -fall precaution. (2) Acute metabolic encephalopathy: Plan: -likely multifactorial, including delirium, possible syncope, dementia, UTI? Plan: -check urinalysis -continue folic acid, thiamine supp -delirium precautions -PT/OT, will need placement with view to rodent exterminator care -3mg melatonin at bedtime for sleep wake cycle -avoid anticholinergics (3) GERD (gastroesophageal reflux disease): Plan: -continue omeprazole (4) H/O ischemic left MCA stroke: Plan: -continue plavix, aspirin (5) Hypophosphatemia: Plan: -replenish (6) Dementia: Plan: -appears moderate to severe, now c/b hallucinations and agitation Plan: -needs placement -f/u with geriatrics outpatient Plan Feeding/fluids: regular Analgesia: tylenol Sedation: na Thromboprophylaxis: SCD given platlets Head up position: na Ulcer prophylaxis: omeprazole Glycemic control: na Spontaneous breathing trial: na Bowel care: miralax prn Indwelling catheter removal: na Deescalation of antibiotics: na Admission and Anticipated Discharge Date Admission Date: December 07, 2024 Subjective Patient seen and examined at bedside. She appears comfortable, denies pain. Pt was discharged but then she was found fallen on the floor by RN, examined at bedside, no focal neurological deficit noted. Will get CT head , CT C spine and XR b/l hip. ROS is not able from patient due to baseline cognition status. Will cancel dc and observe her overnight. Physical Exam Physical Exam: Gen: NAD, on RA, sleeping, woke up for exam. HEENT: NCAT, EOMI, not icteric. External ears normal. No rhinorrhea. moist mucous membranes Neck: Supple, full range of motion, no observable masses, No meningeal sign. Lungs: No Respiratory distress. CV: RRR, no edema. Abdomen: Soft, nondistended, No rebound tenderness. MSK: No joint swelling, no redness. Skin: No rashes, petechiae, lesions. Normal color per patient. Noted abrasions Neuro: unable to perform, noted twitching on exam Results & Data Results & Data Vital Signs (Past 12 Hours) Vital Signs Temp Pulse Pulse Pulse Resp BP Pulse Ox 12/10/24 14:06 36.6 C 84 81 18 138/92 96 12/10/24 13:59 88 12/10/24 12:21 36.6 C 84 18 138/92 96 12/10/24 09:27 80 12/10/24 08:00 36.8 C 84 18 164/90 H 96 12/10/24 07:45 O2 Del Method 12/10/24 14:06 12/10/24 13:59 12/10/24 12:21 Room Air 12/10/24 09:27 12/10/24 08:00 Room Air 12/10/24 07:45 Room Air
--- NOTE | 2024-12-10 16:34 | XRay Report ---
Clinical History: Fall 5 views of the pelvis and hips are submitted for review. Findings: No fracture or dislocation is seen. No significant arthritic changes are noted. No other osseous abnormality is identified. There are no radiopaque foreign bodies. Impression: Unremarkable radiographs of the pelvis and bilateral hips Electronically signed by Cb Donaldson 12-10-2024 4:33 PM
--- NOTE | 2024-12-10 16:50 | CT Scan Report ---
CT head without contrast History: Trauma Comparison: None Technique: Using multidetector thin collimation helical acquisition technique, axial, coronal and sagittal CT images from the skull base to the vertex were obtained without intravenous contrast. Dose reduction techniques were achieved by using automatic exposure control and/or adjustment of mA and/or kV according to patient size and/or use of iterative reconstruction technique. Findings: No intracranial hemorrhage, mass-effect, or midline shift. The ventricles are proportionate to the cerebral sulci. Chronic infarct of the posterior left frontal lobe, otherwise of the bedoya to white matter differentiation of the cerebral hemispheres is preserved. The basal cisterns are patent. There is moderate cerebral atrophy. Moderate, patchy low-attenuation changes in the white matter, most suggestive of sequelae of chronic small vessel ischemic disease. The visualized paranasal sinuses are clear. Mastoid air cells are clear. Bilateral pseudophakia. Impression: No acute intracranial pathology. Electronically signed by Anthony Moreno 12-10-2024 4:49 PM
--- NOTE | 2024-12-10 16:50 | CT Scan Report ---
CT cervical spine without IV contrast History: Trauma Comparison: None Technique: Using multidetector thin collimation helical acquisition technique, axial, coronal and sagittal CT images through the cervical spine were obtained without intravenous contrast. Dose reduction techniques were achieved by using automatic exposure control and/or adjustment of mA and/or kV according to patient size and/or use of iterative reconstruction technique. Findings: The cervical vertebrae are normally aligned. Normal cervical lordosis. No acute fracture or subluxation. No prevertebral edema. Patchy osteopenia. Moderate multilevel degenerative disc height loss. No abnormality of the paraspinous soft tissues. Impression: No acute fracture or traumatic subluxation. Electronically signed by Anthony Moreno 12-10-2024 4:49 PM
[2024-12-10 20:09] VITALS: RESP 16
[2024-12-11 05:59] LABS: Hematocrit (blood only) 32.7 % (37.0-47.0); Hemoglobin 11.1 g/dl (12.0-16.0); Mean Corpuscular Hgb Conc 33.9 g/dL (32.0-36.0); Mean Corpuscular Volume 91.3 fL (80.0-100.0); Mean Platelet Volume 11.4 fL (9.4-12.4); Platelet Count 124 K/uL (130-400); RDW Coefficient of Variation 12.8 % (11.5-14.5); RDW Standard Deviation 42.3 fL (36.4-46.3); Red Blood Count 3.58 M/uL (4.20-5.40)
[2024-12-11 06:16] LABS: BUN Creatinine Ratio 21.3 (10-20); Calcium 9.3 mg/dl (8.6-10.3); Creatinine Clr Calc Pharmacy 43.1 ml/min; Potassium 3.9 mmol/L (3.5-5.1)
[2024-12-11 11:44] VITALS: BP 115/77; TEMP 97.5; O2SAT 97
--- NOTE | 2024-12-11 13:17 | Discharge Summary ---
Date of Service December 11, 2024 Admission HPI Per Admitting Provider 84-year-old female with past medical history of CVA with residual deficits, hyperlipidemia, dysphagia, history of osteoporosis, depression who presents for being found down at home. Last known normal was 10 PM last night. 8 or 9 this morning was found down. In the ED extensive imaging were unremarkable, patient was clearly out of it, admitted to medicine for further workup. Patient seen and examined at bedside., He might family by family at bedside as well. They state that they have been trying to get her to go to assisted living for several weeks to months. But that does not happen. Daughter is taking care of patient almost every day. On a good day she takes her medicine maybe changes her close, but does not do most of her ADLs. However this is different. Her current state is much different than normal. They cannot think of anything out of the ordinary that occurred. States she has been having hallucinations and agitation. Admission Exam Per Admitting Provider Gen: A&O 1 NAD HEENT: NCAT, EOMI, not icteric. External ears normal. No rhinorrhea. Dry mucuous membranes Neck: Supple, full range of motion, no observable masses, No meningeal sign. Lungs: No Respiratory distress. CV: RRR, no edema. Abdomen: Soft, nondistended, No rebound tenderness. MSK: No joint swelling, no redness. Skin: No rashes, petechiae, lesions. Normal color per patient. Noted abrasions Neuro: unable to perform, noted twitching on exam Principal Diagnosis fall Discharge Exam Gen: NAD, on RA, alert and awake HEENT: NCAT, EOMI, not icteric. External ears normal. No rhinorrhea. moist mucous membranes Neck: Supple, full range of motion, no observable masses, No meningeal sign. Lungs: No Respiratory distress. CV: RRR, no edema. Abdomen: Soft, nondistended, No rebound tenderness. MSK: No joint swelling, no redness. Skin: No rashes, petechiae, lesions. Normal color per patient. Noted abrasions Neuro: moves extremities. Discharge Data Allergies Allergy/AdvReac Type Severity Reaction Status Date / Time morphine Allergy Unknown severe Unverified 10/31/24 13:35 headache Consultations 12/07/24 13:14 ED Decision to Admit Stat Ordered Studies 12/07/24 11:48 CT abd pelvis IV con only Stat CT chest diagnostic w con Stat 12/07/24 11:49 CT cervical spine wo con Stat CT head/brain wo con Stat 12/10/24 15:16 CT cervical spine wo con Routine CT head/brain wo con Routine Hospital Course (1) Unwitnessed fall: Plan (1) Unwitnessed fall: Plan: -unclear etiology -extensive imaging without acute findings -ECG showing potential flutter waves, however appears sinus -unclear etiology, differential includes mechanical fall, multifactorial, arrythmia, UTI, less likely infarct (no localization on exam), structrual cardiac, hypovlemia, orthostatic, seizures -fell again 12/10 Plan: -telemetry monitoring -delirium precautions -echo wnl. -fall 12/10, send ct head, ct c spine and b/l hip xr. no fractures/acute findings. no focal neurological deficits. -fall precaution. (2) Acute metabolic encephalopathy: Plan: -likely multifactorial, including delirium, possible syncope, dementia, UTI? Plan: -check urinalysis -continue folic acid, thiamine supp -delirium precautions -PT/OT, will need placement with [facility] -3mg melatonin at bedtime for sleep wake cycle -avoid anticholinergics (3) GERD (gastroesophageal reflux disease): Plan: -continue omeprazole (4) H/O ischemic left MCA stroke: Plan: -continue plavix, aspirin (5) Hypophosphatemia: Plan: -replenish (6) Dementia: Plan: -appears moderate to severe, now c/b hallucinations and agitation Plan: -needs placement -f/u with geriatrics outpatient Patient is being discharged to SNF with following instructions at the point of discharge: Follow-up with your primary care physician within a week time and likely you will need labs CBC/CMP/magnesium/phosphorus. Continue with physical therapy at nursing facility. Avoid anticholinergics. Melatonin at bedtime for her sleep-wake cycle. Take your medications as prescribed. Please make sure that you are able to get your medications today by calling your pharmacy before you leave the hospital so that your treatment continuity is not broken. Home [facility] Attestation I certify that this patient is under my care and that I, or a physicians personnel security assistant working with me, had a face to-face encounter that meets the home health [id number] encounter requirements with this patient. The encounter with the patient was in whole, or in part, for the following medical condition, which is the primary reason for home health care (list medical condition): I certify that, based on my findings, the following services are medically necessary home health services: My clinical findings support the need for the above services because: Further, I certify that my clinical findings support that this patient is homebound (i.e. absences from home require considerable and taxing effort and are for medical reasons or congregational services or infrequently or of short duration when for other reasons) because: Certification for Home Health Services: Based on the above findings, I certify that this patient is confined to the home and needs intermittent intermediate care, physical therapy and/or speech therapy or continues to need occupational therapy. The patient is under my care, and I have initiated the establishment of the plan of care. This patient will be followed by a physician who will periodically review the plan of care. Total Time Total Time Spent Total Time Spent (In Minutes): 35 Discharge Plan Discharge Items Patient Disposition: Transfer Nursing Home Fac Reason For Visit: FALL Discharge Diagnosis: Unwitnessed fall Acute metabolic encephalopathy Activity: As commented below Activity Comment: c/w pt/ot at snf. Non-emergency contact: Primary Care Provider Call non-emergency contact if: you have any medication questions and your symptoms worsen Follow-up/Referrals: Melecio Nye MD [Primary Care Provider] - Diet: Regular Addtl Attending Provider Instructions: Follow-up with your primary care physician within a week time and likely you will need labs CBC/CMP/magnesium/phosphorus. Continue with physical therapy at nursing facility. Avoid anticholinergics. Melatonin at bedtime for her sleep-wake cycle. Take your medications as prescribed. Please make sure that you are able to get your medications today by calling your pharmacy before you leave the hospital so that your treatment continuity is not broken. Pending Studies at Discharge: No Stand-Alone Forms: [employer] Skilled Items Patient informed of condition?: Yes DNR: No Discharge Level of Care: Skilled Communicable Disease: No Discharge Prognosis: Stable Lines: None Urinary Catheter: No Medications and DC Order Prescriptions: New melatonin 3 mg Tablet 3 mg PO HS Qty: 30 0RF folic acid 1 mg Tablet 1 mg PO QAM Qty: 30 0RF thiamine HCl (vitamin B1) 100 mg Tablet 100 mg PO QAM Qty: 30 0RF Continued clopidogrel 75 mg tablet 75 mg PO QAM Rx Instructions: filled 12/05 90 day supply escitalopram oxalate 10 mg tablet 10 mg PO UD Rx Instructions: original: 10 mg po ; . filled 09/21 90 day supply for #90 riboflavin (vitamin B2) 400 mg Tablet 400 mg PO QAM Rx Instructions: otc unable to verify omeprazole 40 mg Capsule,Delayed Release(Dr/Ec) 40 mg PO DAILY Rx Instructions: filled 11/03 90 day supply metoprolol succinate 25 mg tablet extended release 24 hr 25 mg PO QAM Rx Instructions: filled 09/21 90 day supply Discharge Orders: Discharge Order (Routine); Ordered 12/11/24 Ordered By: Dragan Farias Admission Data Admit Date/Time: 12/07/24 13:45 Attending Provider: Dragan Farias Admit Provider: Meir Pratt Primary Care Provider: Melecio Nye Other Providers: Meir Pratt Other Interventions: Discharge Summary Assessment (RN) Last Done: 12/10/24 14:06
[2024-12-11 13:39] VITALS: PULSE 84
== END 2024-12-11 15:18 | DRG 91 ==
LOC: ED 11:37 → 2N 13:45 → SUATTDRO 13:45 → 2N 14:40